=== PATIENT | male | born 1950 | race Caucasian/White ===

== ENCOUNTER 2021-12-09 15:53 | Inpatient (IN) | payer OTHER ==
[~2021-12-09] VITALS: Ht 180.3 cm; Wt 95.5 kg
[2021-12-09] MEDS ORDERED: dexamethasone sod phosphate 10mg/ml inj IV STA (16:04)
[2021-12-09] MEDS ORDERED: ipratropium 0.5 MG/2.5ML nebule IH ONE (16:05)
[2021-12-09] MEDS ORDERED: albuterol 2.5 MG/3 ML nebule CONTNEB PRN (16:05)
[2021-12-09] MEDS ORDERED: normal saline 1000ML IV soln IVB ONE (16:10)
[2021-12-09 16:14] LABS: ABG BASE EXCESS -4.5 mmol/L (-2.0-2.0); ABG OXYGEN SATURATION 93.2 % (94-97); ABG PCO2 (T) 27.8 mmHg (35.0-48.0); ABG PO2 (T) 67.5 mmHg (75.0-100.0); ALLEN'S TEST POSITIVE; FCOHb 0.8 % (0.0-3.9); FMetHb 0.3 % (0.0-1.5); FO2Hb 92.2 % (94-97); TOTAL HEMOGLOBIN 16.7 G/dl (14.0-18.0)
[2021-12-09 16:15] LABS: BASOPHILS % (AUTO) 0.2 % (0-1); EOSINOPHILS % (AUTO) 0 % (0-6); HEMATOCRIT 47.2 % (42.0-52.0); LYMPHOCYTES # (AUTO) 0.5 X10'3 (1.1-4.8); LYMPHOCYTES % (AUTO) 4.5 % (21-51); MEAN CORPUSCULAR HEMOGLOBIN 30.5 PG (27.0-31.0); MEAN CORPUSCULAR HGB CONC 33.9 g/dL (33.0-36.5); MEAN PLATELET VOLUME 9.9 FL (7.4-10.4); MONOCYTES # (AUTO) 0.9 X10'3 (0-0.9); MONOCYTES % (AUTO) 7.2 % (2-12); NEUTROPHILS # (AUTO) 10.5 X10'3 (1.8-7.7); NEUTROPHILS % (AUTO) 88.1 % (42-75); PLATELET COUNT 199 X10'3 (140-440); RED BLOOD COUNT 5.24 X10'6 (4.70-6.10); RED CELL DISTRIBUTION WIDTH 13.4 % (11.5-14.5); WHITE BLOOD COUNT 11.9 X10'3 (4.5-11.0)
[2021-12-09] MEDS ORDERED: acetaminophen 650mg rectal suppository RC ONE (16:25)
[2021-12-09 16:36] LABS: ALANINE AMINOTRANSFERASE 323 U/L (12-78); ALBUMIN 2.7 G/DL (3.4-5.0); ALBUMIN/GLOBULIN RATIO 0.6 (1.1-1.5); ALKALINE PHOSPHATASE 92 IU/L (46-116); ANION GAP 18 (8-16); ASPARTATE AMINO TRANSFERASE 534 U/L (10-37); BLOOD UREA NITROGEN 46 MG/DL (7-18); BUN/CREATININE RATIO 20.5 (5.4-32.0); CALCIUM 8.5 MG/DL (8.5-10.1); CHLORIDE 104 MMOL/L (99-107); CREATININE 2.24 MG/DL (0.60-1.10); GLUCOSE 215 MG/DL (70-104); POTASSIUM 4.1 MMOL/L (3.5-5.1); SODIUM 140 MMOL/L (135-145); TOTAL CARBON DIOXIDE 18.1 MMOL/L (24-32); TOTAL PROTEIN 7.1 G/DL (6.4-8.2); eGFR 29 ML/MIN
--- NOTE | 2021-12-09 16:43 | NUR ---
chris/daughter [phone] marsha/daughter
[2021-12-09 16:49] LABS: CLARITY,URINE CLEAR (Clear); GLUCOSE, URINE NEGATIVE (Neg); KETONES,URINE TRACE mg/dl (Neg); LEUKOCYTE ESTERASE ,URINE NEGATIVE (Neg); NITRITES, URINE NEGATIVE (Neg); OCCULT BLOOD,URINE TRACE-INTACT (Neg); PH,URINE 5.5 (4.8-8.0); PROTEIN,URINE 100 mg/dl (Neg)
[2021-12-09] MEDS ORDERED: enoxaparin 100mg/ml syringe SUBCUT ONE (16:50)
[2021-12-09 16:54] LABS: COLOR,URINE AMBER (Yellow); UA COLLECTION TYPE FOLEY CATH
[2021-12-09] MEDS ORDERED: CefTRIAXone 2gm/D5W 50ml BAG 50 ML IV ONE (16:55)
[2021-12-09 16:56] LABS: RBC,URINE 0-2 /HPF (0-2); WBC,URINE NONE SEEN /HPF (0-4)
[2021-12-09 16:57] LABS: BACTERIA,URINE NONE SEEN /HPF (Neg); HYALINE CASTS 0-3 /LPF (NEGATIVE); RENAL CELLS, URINE FEW /HPF; SQUAMOUS EPITHELIAL CELL,UR FEW /LPF (FEW)
--- NOTE | 2021-12-09 17:49 | NUR ---
DR. TALAVERA AT BEDSIDE.
--- NOTE | 2021-12-09 17:59 | NUR ---
DR. TALAVERA AT BEDSIDE.
[2021-12-09] MEDS ORDERED: ondansetron/PF 4mg/2ml inj IV PRN (18:05)
[2021-12-09] MEDS ORDERED: potassium CL 10mEq/100ml bag 100 ML IV PRN (18:05)
[2021-12-09] MEDS ORDERED: acetaminophen 325mg tablet PO PRN ×2 (18:05)
[2021-12-09] MEDS ORDERED: magnesium 4gm in 100ml NS 100 ML IV PRN (18:05)
[2021-12-09] MEDS ORDERED: albuterol 2.5 MG/3 ML nebule NEB PRN (18:05)
[2021-12-09] MEDS ORDERED: magnesium 2GM in 50ml NS 50 ML IV PRN (18:05)
[2021-12-09] MEDS ORDERED: potassium Cl 20 mEq SR tablet PO PRN ×2 (18:05)
[2021-12-09] MEDS ORDERED: magnesium Cl slow-release 64mg tablet PO PRN (18:05)
[2021-12-09] MEDS: normal saline 1000ml 1,000 ML IV SCH (18:05)
[2021-12-09] MEDS ORDERED: levoFLOXACIN-Levaquin 500mg/D5 100 ML IV ONE (18:34)
--- NOTE | 2021-12-09 19:26 | NUR ---
updated family on the phone
[2021-12-09] MEDS ORDERED: heparin, porcine 5000 units/ml vial SQ SCH (20:00)
[2021-12-09] MEDS: K and/or MAG REPLACEMENT MC SCH (20:00)
[2021-12-09] MEDS: methylPREDNISolone sod succ 125mg/2ml vial IV SCH (21:49)
[2021-12-09 23:30] VITALS: BP 137/94
[2021-12-09] MEDS ORDERED: NO HOME MEDS (23:44)
[2021-12-10 03:22] VITALS: BP 133/98
[2021-12-10] MEDS: normal saline 1000ml 1,000 ML IV SCH ×2 (04:05→18:23)
[2021-12-10 07:49] LABS: BASOPHILS % (AUTO) 0.2 % (0-1); EOSINOPHILS % (AUTO) 0 % (0-6); HEMATOCRIT 47.4 % (42.0-52.0); HEMOGLOBIN 16.1 g/dl (14.0-17.9); LYMPHOCYTES # (AUTO) 0.7 X10'3 (1.1-4.8); LYMPHOCYTES % (AUTO) 4.5 % (21-51); MEAN CORPUSCULAR HEMOGLOBIN 30.4 PG (27.0-31.0); MEAN CORPUSCULAR HGB CONC 34.1 g/dL (33.0-36.5); MEAN CORPUSCULAR VOLUME 89.2 FL (78-98); MEAN PLATELET VOLUME 10.3 FL (7.4-10.4); MONOCYTES # (AUTO) 0.5 X10'3 (0-0.9); MONOCYTES % (AUTO) 3.6 % (2-12); NEUTROPHILS # (AUTO) 13.4 X10'3 (1.8-7.7); NEUTROPHILS % (AUTO) 91.7 % (42-75); PLATELET COUNT 193 X10'3 (140-440); RED BLOOD COUNT 5.31 X10'6 (4.70-6.10); RED CELL DISTRIBUTION WIDTH 13.4 % (11.5-14.5); WHITE BLOOD COUNT 14.6 X10'3 (4.5-11.0)
[2021-12-10] MEDS ORDERED: azithromycin/NS 500mg/250ml 250 ML IV SCH ×2 (08:00)
[2021-12-10] MEDS: K and/or MAG REPLACEMENT MC SCH ×2 (08:00→20:00)
[2021-12-10 08:16] LABS: ALANINE AMINOTRANSFERASE 669 U/L (12-78); ALBUMIN 2.7 G/DL (3.4-5.0); ALBUMIN/GLOBULIN RATIO 0.8 (1.1-1.5); ALKALINE PHOSPHATASE 97 IU/L (46-116); ANION GAP 14 (8-16); ASPARTATE AMINO TRANSFERASE 807 U/L (10-37); BILIRUBIN,TOTAL 0.6 MG/DL (0.1-1.0); BLOOD UREA NITROGEN 56 MG/DL (7-18); BUN/CREATININE RATIO 34.1 (5.4-32.0); CHLORIDE 107 MMOL/L (99-107); CREATININE 1.64 MG/DL (0.60-1.10); GLUCOSE 272 MG/DL (70-104); POTASSIUM 4.2 MMOL/L (3.5-5.1); SODIUM 143 MMOL/L (135-145); TOTAL CARBON DIOXIDE 21.9 MMOL/L (24-32); TOTAL PROTEIN 6.3 G/DL (6.4-8.2); eGFR 42 ML/MIN
[2021-12-10 11:22] LABS: C-REACTIVE PROTEIN 21.35 MG/DL (0.0-0.5)
[2021-12-10 11:26] LABS: D-DIMER > 35.20 MG/L FEU (0-0.50)
[2021-12-10] MEDS: methylPREDNISolone sod succ 125mg/2ml vial IV SCH ×2 (11:27→19:14)
[2021-12-10] MEDS ORDERED: TOCILIZUMAB 80MG/4 ML INJ. 800 MG in normal saline 100ml IV soln 60 ML IV ONE (11:45)
[2021-12-10] MEDS ORDERED: heparin 25,000 UNIT/250ml bag 250 ML IV SCH (11:50)
[2021-12-10] MEDS ORDERED: heparin 10,000 units/1 ML INJ IV ONE (11:50)
[2021-12-10] MEDS ORDERED: heparin 10,000 units/1 ML INJ IV PRN (11:50)
[2021-12-10 15:00] VITALS: BP 141/72
[2021-12-10 18:00] VITALS: BP 137/74
[2021-12-10] MEDS ORDERED: levoFLOXACIN-Levaquin 250mg/D5 50 ML IV SCH (20:00)
[2021-12-10] MEDS ORDERED: enoxaparin 40mg/0.4ml syringe SUBCUT SCH (20:00)
[2021-12-10 22:00] VITALS: BP 145/96
[2021-12-11] MEDS: normal saline 1000ml 1,000 ML IV SCH ×3 (00:33→22:45)
[2021-12-11 02:00] VITALS: BP 132/94
[2021-12-11 06:00] VITALS: BP 141/93
[2021-12-11 07:56] LABS: BASOPHILS % (AUTO) 0.1 % (0-1); EOSINOPHILS % (AUTO) 0 % (0-6); HEMATOCRIT 47.2 % (42.0-52.0); LYMPHOCYTES # (AUTO) 0.5 X10'3 (1.1-4.8); LYMPHOCYTES % (AUTO) 1.8 % (21-51); MEAN CORPUSCULAR HEMOGLOBIN 30.2 PG (27.0-31.0); MEAN CORPUSCULAR VOLUME 88.8 FL (78-98); MEAN PLATELET VOLUME 10.2 FL (7.4-10.4); MONOCYTES # (AUTO) 0.9 X10'3 (0-0.9); MONOCYTES % (AUTO) 3.4 % (2-12); NEUTROPHILS # (AUTO) 25.7 X10'3 (1.8-7.7); NEUTROPHILS % (AUTO) 94.7 % (42-75); PLATELET COUNT 186 X10'3 (140-440); RED BLOOD COUNT 5.31 X10'6 (4.70-6.10); RED CELL DISTRIBUTION WIDTH 13.6 % (11.5-14.5)
[2021-12-11] MEDS: K and/or MAG REPLACEMENT MC SCH ×2 (08:00→19:51)
[2021-12-11 08:10] LABS: WHITE BLOOD COUNT 27.1 X10'3 (4.5-11.0)
[2021-12-11] MEDS: methylPREDNISolone sod succ 125mg/2ml vial IV SCH ×2 (08:28→19:22)
[2021-12-11 08:30] LABS: ALANINE AMINOTRANSFERASE 574 U/L (12-78); ALBUMIN 2.4 G/DL (3.4-5.0); ALBUMIN/GLOBULIN RATIO 0.7 (1.1-1.5); ALKALINE PHOSPHATASE 110 IU/L (46-116); ANION GAP 10 (8-16); ASPARTATE AMINO TRANSFERASE 312 U/L (10-37); BILIRUBIN,TOTAL 0.6 MG/DL (0.1-1.0); BLOOD UREA NITROGEN 48 MG/DL (7-18); BUN/CREATININE RATIO 42.9 (5.4-32.0); C-REACTIVE PROTEIN 11.84 MG/DL (0.0-0.5); CALCIUM 7.5 MG/DL (8.5-10.1); CHLORIDE 110 MMOL/L (99-107); CREATININE 1.12 MG/DL (0.60-1.10); GLUCOSE 271 MG/DL (70-104); SODIUM 144 MMOL/L (135-145); eGFR 65 ML/MIN
--- NOTE | 2021-12-11 08:46 | NUR ---
PAGE SENT... PAGER ID: [phone] MESSAGE: NEDA [id number]-RE: JOHNATHAN ARORA [phone]...CRITICAL LAB...WBC 27.1
--- NOTE | 2021-12-11 08:47 | NUR ---
ACTING RESOURCE RN, REC'D CALL FROM LAB...CRITICAL LAB WBC 27.1, INTERVENTION DONE, MD QUIGLEY, PRIMARY RN NOTIFIED.
[2021-12-11 09:26] LABS: PLATELET ESTIMATE NORMAL; TOTAL CELLS COUNTED 100
[2021-12-11 09:27] LABS: BURR CELLS FEW; SCHISTOCYTES FEW
[2021-12-11 10:00] VITALS: BP 151/93
[2021-12-11] MEDS ORDERED: DORZ10DR10 EACHEYE (10:09)
[2021-12-11] MEDS ORDERED: PRAV10TA39 PO (10:09)
[2021-12-11] MEDS ORDERED: XAL0.005OS EACHEYE (10:09)
[2021-12-11 10:24] LABS: D-DIMER > 35.20 MG/L FEU (0-0.50)
[2021-12-11] MEDS: levoFLOXACIN 750MG TABLET PO SCH (11:00)
[2021-12-11] MEDS: enoxaparin 100mg/ml syringe SUBCUT SCH ×2 (11:05→19:23)
[2021-12-11 14:00] VITALS: BP 128/73
--- NOTE | 2021-12-11 17:37 | NUR ---
Spoke to daughter over phone, gave update and obtained patient home meds. Home meds called into pharmacy. Pharmacy will review meds and reach out to MD. Simpson removed per Dr. Parisi requests. Patient encouraged to lay on side/prone. IS placed in room, patient not able to tolerate at moment.
[2021-12-11 18:00] VITALS: BP 116/59
--- NOTE | 2021-12-11 18:25 | NUR ---
Patient in room [facility]TH[facility] 4018. I have received report from GAMALIEL Mosqueda and had the opportunity to ask questions and assume patient care.
--- NOTE | 2021-12-11 18:36 | NUR ---
Problems reprioritized. Patient report given, questions answered & plan of care reviewed with Cheryle ALSTON.
[2021-12-11] MEDS ORDERED: enoxaparin 40mg/0.4ml syringe SUBCUT SCH (20:00)
[2021-12-11] MEDS ORDERED: enoxaparin 100mg/ml syringe SUBCUT SCH (20:00)
[2021-12-11] MEDS: latanoprost 0.005% 2.5ml ophthalmic drops EACHEYE SCH (20:28)
[2021-12-11] MEDS: dorzolamide/timolol (Cosopt) ophthalmic drops 10ml bottle EACHEYE SCH ×2 (20:28→21:00)
[2021-12-11] MEDS: pravastatin 40mg tablet PO SCH (20:28)
[2021-12-11] MEDS ORDERED: pravastatin 10mg tablet PO SCH (21:00)
[2021-12-11 22:00] VITALS: BP 122/66
[2021-12-12 02:00] VITALS: BP 142/87
[2021-12-12 06:00] VITALS: BP 149/97
[2021-12-12] MEDS: normal saline 1000ml 1,000 ML IV SCH ×2 (06:05→16:05)
--- NOTE | 2021-12-12 06:28 | NUR ---
Problems reprioritized. Patient report given, questions answered & plan of care reviewed with GAMALIEL Mosqueda.
[2021-12-12] MEDS: methylPREDNISolone sod succ 125mg/2ml vial IV SCH ×2 (07:34→20:15)
[2021-12-12] MEDS: enoxaparin 100mg/ml syringe SUBCUT SCH ×2 (07:35→20:16)
[2021-12-12] MEDS: K and/or MAG REPLACEMENT MC SCH ×2 (08:00→20:00)
[2021-12-12 09:09] LABS: EOSINOPHILS % (AUTO) 0 % (0-6); LYMPHOCYTES # (AUTO) 0.4 X10'3 (1.1-4.8); MONOCYTES # (AUTO) 0.9 X10'3 (0-0.9); NEUTROPHILS % (AUTO) 94.4 % (42-75); RED BLOOD COUNT 5.58 X10'6 (4.70-6.10)
[2021-12-12 09:11] LABS: BASOPHILS # (AUTO) 0.1 X10'3 (0-0.2); BASOPHILS % (AUTO) 0.2 % (0-1); HEMATOCRIT 49.7 % (42.0-52.0); HEMOGLOBIN 16.7 g/dl (14.0-17.9); LYMPHOCYTES % (AUTO) 1.8 % (21-51); MEAN CORPUSCULAR HGB CONC 33.6 g/dL (33.0-36.5); MEAN CORPUSCULAR VOLUME 89.1 FL (78-98); MEAN PLATELET VOLUME 10.4 FL (7.4-10.4); MONOCYTES % (AUTO) 3.6 % (2-12); NEUTROPHILS # (AUTO) 23.7 X10'3 (1.8-7.7); PLATELET COUNT 128 X10'3 (140-440); RED CELL DISTRIBUTION WIDTH 13.9 % (11.5-14.5)
[2021-12-12 09:19] LABS: WHITE BLOOD COUNT 25.1 X10'3 (4.5-11.0)
[2021-12-12 09:27] LABS: D-DIMER > 35.20 MG/L FEU (0-0.50)
[2021-12-12] MEDS ORDERED: polyethylene glycol 3350 17gm powd pack PO ONE (09:40)
[2021-12-12 10:00] VITALS: BP 139/85
[2021-12-12 10:29] LABS: TOTAL CELLS COUNTED 100
[2021-12-12 10:30] LABS: PLATELET ESTIMATE DECREASED; POIKILOCYTOSIS FEW; TOXIC GRANULATION 1+; TOXIC VACUOLATION 1+
[2021-12-12 11:07] LABS: ALANINE AMINOTRANSFERASE 525 U/L (12-78); ALBUMIN 2.8 G/DL (3.4-5.0); ALBUMIN/GLOBULIN RATIO 0.8 (1.1-1.5); ALKALINE PHOSPHATASE 156 IU/L (46-116); ANION GAP 14 (8-16); ASPARTATE AMINO TRANSFERASE 196 U/L (10-37); BILIRUBIN,TOTAL 0.9 MG/DL (0.1-1.0); BLOOD UREA NITROGEN 41 MG/DL (7-18); BUN/CREATININE RATIO 33.6 (5.4-32.0); C-REACTIVE PROTEIN 6.65 MG/DL (0.0-0.5); CALCIUM 7.7 MG/DL (8.5-10.1); CHLORIDE 110 MMOL/L (99-107); CREATININE 1.22 MG/DL (0.60-1.10); GLUCOSE 244 MG/DL (70-104); POTASSIUM 4.4 MMOL/L (3.5-5.1); SODIUM 146 MMOL/L (135-145); TOTAL CARBON DIOXIDE 22.4 MMOL/L (24-32); TOTAL PROTEIN 6.2 G/DL (6.4-8.2); eGFR 59 ML/MIN
[2021-12-12 14:00] VITALS: BP 128/63
[2021-12-12 18:00] VITALS: BP 134/67
--- NOTE | 2021-12-12 18:21 | NUR ---
Problems reprioritized. Patient report given, questions answered & plan of care reviewed with Monique ALSTON.
--- NOTE | 2021-12-12 19:40 | NUR ---
Pt attempted to eat dinner while on high flow with face mask; pt unable to breath and oxygen saturation drops to 78%. pt instructed to stop eating and placed back on BIPAP. Charge nurse notified. ensure order pending.
[2021-12-12] MEDS: pravastatin 40mg tablet PO SCH (20:15)
[2021-12-12] MEDS: dorzolamide/timolol (Cosopt) ophthalmic drops 10ml bottle EACHEYE SCH (20:16)
[2021-12-12] MEDS: latanoprost 0.005% 2.5ml ophthalmic drops EACHEYE SCH (20:17)
[2021-12-12 22:00] VITALS: BP 130/65
--- NOTE | 2021-12-12 23:30 | NUR ---
RT informed me that she increased his FIO2 to 90% for oxygen sat's in the 86-87%.
--- NOTE | 2021-12-12 23:31 | NUR ---
Pt on Bipap oxygen saturation 87 oxygen level increased to 90.
--- NOTE | 2021-12-13 00:16 | NUR ---
Pt is sleeping on his right side, saturating well 96% on BiPAP
--- NOTE | 2021-12-13 01:55 | NUR ---
Pt is on his left side saturating 88 % on the BIPAP
[2021-12-13 02:00] VITALS: BP 138/68
[2021-12-13 06:00] VITALS: BP 143/84
[2021-12-13] MEDS: levoFLOXACIN 750MG TABLET PO SCH (07:40)
[2021-12-13] MEDS: enoxaparin 100mg/ml syringe SUBCUT SCH ×2 (07:40→19:59)
[2021-12-13] MEDS: methylPREDNISolone sod succ 125mg/2ml vial IV SCH (07:40)
[2021-12-13 07:53] LABS: BASOPHILS # (AUTO) 0.1 X10'3 (0-0.2); BASOPHILS % (AUTO) 0.2 % (0-1); EOSINOPHILS % (AUTO) 0.1 % (0-6); HEMATOCRIT 46.2 % (42.0-52.0); HEMOGLOBIN 15.3 g/dl (14.0-17.9); LYMPHOCYTES # (AUTO) 0.4 X10'3 (1.1-4.8); LYMPHOCYTES % (AUTO) 1.7 % (21-51); MEAN CORPUSCULAR HEMOGLOBIN 29.6 PG (27.0-31.0); MEAN CORPUSCULAR HGB CONC 33.1 g/dL (33.0-36.5); MEAN CORPUSCULAR VOLUME 89.2 FL (78-98); MEAN PLATELET VOLUME 10.9 FL (7.4-10.4); MONOCYTES # (AUTO) 0.4 X10'3 (0-0.9); MONOCYTES % (AUTO) 1.9 % (2-12); NEUTROPHILS # (AUTO) 20.5 X10'3 (1.8-7.7); NEUTROPHILS % (AUTO) 96.1 % (42-75); PLATELET COUNT 112 X10'3 (140-440); RED BLOOD COUNT 5.18 X10'6 (4.70-6.10); RED CELL DISTRIBUTION WIDTH 13.5 % (11.5-14.5); WHITE BLOOD COUNT 21.3 X10'3 (4.5-11.0)
[2021-12-13] MEDS: lactose-reduced food (Ensure Enlive) - 237ml bottle PO SCH ×3 (08:00→18:29)
[2021-12-13] MEDS: K and/or MAG REPLACEMENT MC SCH ×2 (08:00→19:40)
[2021-12-13 08:53] LABS: ALANINE AMINOTRANSFERASE 328 U/L (12-78); ALBUMIN 2.4 G/DL (3.4-5.0); ALBUMIN/GLOBULIN RATIO 0.9 (1.1-1.5); ALKALINE PHOSPHATASE 150 IU/L (46-116); ANION GAP 9 (8-16); ASPARTATE AMINO TRANSFERASE 99 U/L (10-37); BILIRUBIN,TOTAL 0.7 MG/DL (0.1-1.0); BLOOD UREA NITROGEN 34 MG/DL (7-18); BUN/CREATININE RATIO 33.7 (5.4-32.0); C-REACTIVE PROTEIN 3.04 MG/DL (0.0-0.5); CALCIUM 7.4 MG/DL (8.5-10.1); CHLORIDE 112 MMOL/L (99-107); CREATININE 1.01 MG/DL (0.60-1.10); GLUCOSE 219 MG/DL (70-104); POTASSIUM 4.3 MMOL/L (3.5-5.1); SODIUM 145 MMOL/L (135-145); TOTAL CARBON DIOXIDE 24.1 MMOL/L (24-32); TOTAL PROTEIN 5.2 G/DL (6.4-8.2); eGFR 73 ML/MIN
[2021-12-13 09:15] LABS: D-DIMER > 35.20 MG/L FEU (0-0.50)
[2021-12-13 10:00] VITALS: BP 139/84
[2021-12-13] MEDS: normal saline 1000ml 1,000 ML IV SCH (10:25)
--- NOTE | 2021-12-13 11:18 | NUR ---
Initial: Pt admit for acute respiratory failure with COVID PNA, RACHELE, metabolic acidosis, and shock liver. Pt on a regular diet and initially eating well with average 63% PO intake of first seven meals however down to 0% PO intake at three most recent meals. Pt now receiving Ensure Enlive TIDWM, documented with 100% PO intake first ONS. Recommend continuing with ONS and encouraging PO intake of meals to optimize PO intake. Noted pt currently BiPAP dependent, likely impacting PO intake of meals. LBM 12/09, currently not receiving routine bowel care. D/w dietary to send prune juice with next meal to assist with bowel regularity, though pt would benefit from routine bowel care. Will continue to follow and make recommendations as appropriate. Recommendations: 1) Continue regular diet 2) Ensure Enlive TIDWM 3) Routine bowel care 4) Scaled weight this admit; weekly scaled weights thereafter Addendum: 12/13/21 at [address] Amended: Links added.
[2021-12-13 14:00] VITALS: BP 120/77
--- NOTE | 2021-12-13 17:19 | NUR ---
Patient encouraged to lay on side/prone for maximum oxygenation. Nutrition intake encouraged/assistance provided while on bipap.
[2021-12-13 18:00] VITALS: BP 151/78
--- NOTE | 2021-12-13 18:20 | NUR ---
Problems reprioritized. Patient report given, questions answered & plan of care reviewed with Vanessa ALSTON.
[2021-12-13] MEDS: latanoprost 0.005% 2.5ml ophthalmic drops EACHEYE SCH (19:58)
[2021-12-13] MEDS: dorzolamide/timolol (Cosopt) ophthalmic drops 10ml bottle EACHEYE SCH (19:58)
[2021-12-13] MEDS: pravastatin 40mg tablet PO SCH (19:58)
[2021-12-13] MEDS: methylPREDNISolone sod succ/PF 40mg inj. IV SCH (19:59)
[2021-12-13 22:00] VITALS: BP 137/79
[2021-12-14 02:00] VITALS: BP 155/71
[2021-12-14 06:00] VITALS: BP 147/75
--- NOTE | 2021-12-14 06:10 | NUR ---
received report from alisha riley rn
--- NOTE | 2021-12-14 06:28 | NUR ---
Problems reprioritized. Patient report given, questions answered & plan of care reviewed with GAMALIEL Bender.
[2021-12-14 07:50] LABS: BASOPHILS % (AUTO) 0.1 % (0-1); EOSINOPHILS % (AUTO) 0.1 % (0-6); HEMATOCRIT 46.7 % (42.0-52.0); HEMOGLOBIN 15.8 g/dl (14.0-17.9); LYMPHOCYTES # (AUTO) 0.3 X10'3 (1.1-4.8); LYMPHOCYTES % (AUTO) 1.7 % (21-51); MEAN CORPUSCULAR HEMOGLOBIN 29.9 PG (27.0-31.0); MEAN CORPUSCULAR HGB CONC 33.8 g/dL (33.0-36.5); MEAN CORPUSCULAR VOLUME 88.4 FL (78-98); MEAN PLATELET VOLUME 10.8 FL (7.4-10.4); MONOCYTES # (AUTO) 0.2 X10'3 (0-0.9); MONOCYTES % (AUTO) 1.2 % (2-12); NEUTROPHILS # (AUTO) 16.8 X10'3 (1.8-7.7); NEUTROPHILS % (AUTO) 96.9 % (42-75); PLATELET COUNT 125 X10'3 (140-440); RED BLOOD COUNT 5.28 X10'6 (4.70-6.10); RED CELL DISTRIBUTION WIDTH 13.1 % (11.5-14.5); WHITE BLOOD COUNT 17.3 X10'3 (4.5-11.0)
[2021-12-14 07:56] LABS: D-DIMER > 35.20 MG/L FEU (0-0.50)
[2021-12-14] MEDS: K and/or MAG REPLACEMENT MC SCH ×2 (08:00→20:00)
[2021-12-14 08:18] LABS: ALANINE AMINOTRANSFERASE 238 U/L (12-78); ALBUMIN 2.4 G/DL (3.4-5.0); ALBUMIN/GLOBULIN RATIO 0.8 (1.1-1.5); ALKALINE PHOSPHATASE 141 IU/L (46-116); ANION GAP 10 (8-16); ASPARTATE AMINO TRANSFERASE 59 U/L (10-37); BILIRUBIN,TOTAL 0.8 MG/DL (0.1-1.0); BLOOD UREA NITROGEN 32 MG/DL (7-18); BUN/CREATININE RATIO 34.4 (5.4-32.0); C-REACTIVE PROTEIN 1.76 MG/DL (0.0-0.5); CALCIUM 7.3 MG/DL (8.5-10.1); CHLORIDE 110 MMOL/L (99-107); CREATININE 0.93 MG/DL (0.60-1.10); GLUCOSE 197 MG/DL (70-104); POTASSIUM 4.6 MMOL/L (3.5-5.1); SODIUM 144 MMOL/L (135-145); TOTAL CARBON DIOXIDE 23.9 MMOL/L (24-32); TOTAL PROTEIN 5.3 G/DL (6.4-8.2); eGFR 80 ML/MIN
[2021-12-14] MEDS: lactose-reduced food (Ensure Enlive) - 237ml bottle PO SCH ×3 (08:18→18:00)
[2021-12-14] MEDS: methylPREDNISolone sod succ/PF 40mg inj. IV SCH ×2 (08:22→20:02)
[2021-12-14] MEDS: enoxaparin 100mg/ml syringe SUBCUT SCH ×2 (08:23→20:03)
[2021-12-14] MEDS: normal saline 1000ml 1,000 ML IV SCH (08:37)
[2021-12-14 10:00] VITALS: BP 117/66
[2021-12-14 12:39] LABS: TOTAL CELLS COUNTED 100
[2021-12-14 12:40] LABS: PLATELET ESTIMATE DECREASED; POIKILOCYTOSIS FEW; POLYCHROMASIA FEW
[2021-12-14 18:00] VITALS: BP 128/82
--- NOTE | 2021-12-14 18:11 | NUR ---
GAVE REPORT TO Rodrick BURDICK RN
[2021-12-14] MEDS: pravastatin 40mg tablet PO SCH (20:03)
[2021-12-14] MEDS: dorzolamide/timolol (Cosopt) ophthalmic drops 10ml bottle EACHEYE SCH (20:03)
[2021-12-14] MEDS: latanoprost 0.005% 2.5ml ophthalmic drops EACHEYE SCH (20:03)
[2021-12-14 22:00] VITALS: BP 127/71
[2021-12-15 02:00] VITALS: BP 132/80
[2021-12-15] MEDS: normal saline 1000ml 1,000 ML IV SCH ×2 (04:54→22:55)
[2021-12-15 06:00] VITALS: BP 129/85
--- NOTE | 2021-12-15 06:10 | NUR ---
received report from alisha riley rn
--- NOTE | 2021-12-15 06:17 | NUR ---
Problems reprioritized. Patient report given, questions answered & plan of care reviewed with GAMALIEL Bender.
[2021-12-15 07:19] LABS: D-DIMER > 35.20 MG/L FEU (0-0.50)
[2021-12-15] MEDS: K and/or MAG REPLACEMENT MC SCH ×2 (08:00→19:48)
[2021-12-15] MEDS: lactose-reduced food (Ensure Enlive) - 237ml bottle PO SCH ×3 (08:15→18:03)
[2021-12-15] MEDS: levoFLOXACIN 750MG TABLET PO SCH (08:39)
[2021-12-15] MEDS: methylPREDNISolone sod succ/PF 40mg inj. IV SCH ×2 (08:40→19:47)
[2021-12-15] MEDS: enoxaparin 100mg/ml syringe SUBCUT SCH ×2 (08:41→19:48)
[2021-12-15 18:00] VITALS: BP 126/78
--- NOTE | 2021-12-15 18:11 | NUR ---
GAVE REPORT TO GAMALIEL GONZALEZ
[2021-12-15] MEDS: dorzolamide/timolol (Cosopt) ophthalmic drops 10ml bottle EACHEYE SCH (19:47)
[2021-12-15] MEDS: latanoprost 0.005% 2.5ml ophthalmic drops EACHEYE SCH (19:47)
[2021-12-15] MEDS: pravastatin 40mg tablet PO SCH (19:47)
[2021-12-15 22:00] VITALS: BP 136/88
[2021-12-16 02:00] VITALS: BP 125/68
[2021-12-16 06:00] VITALS: BP 135/85
--- NOTE | 2021-12-16 06:10 | NUR ---
RECEIVED REPORT FROM GAMALIEL GONZALEZ
[2021-12-16] MEDS: lactose-reduced food (Ensure Enlive) - 237ml bottle PO SCH ×3 (07:37→18:00)
[2021-12-16] MEDS: methylPREDNISolone sod succ/PF 40mg inj. IV SCH ×2 (07:46→20:13)
[2021-12-16] MEDS: enoxaparin 100mg/ml syringe SUBCUT SCH ×2 (07:47→20:13)
[2021-12-16] MEDS: K and/or MAG REPLACEMENT MC SCH ×2 (08:00→20:00)
[2021-12-16 09:19] LABS: D-DIMER 26.35 MG/L FEU (0-0.50)
[2021-12-16 10:00] VITALS: BP 114/65
[2021-12-16] MEDS ORDERED: iohexol 350MG/ML 100ml bottle IV ONE (11:04)
--- NOTE | 2021-12-16 15:09 | NUR ---
Reassessment: Pt PO much improved past two days ~80% avg regular diet and ~79% avg Ensure Enlive TIDWM meeting estimated needs. Remains BIPAP dependent per MD note. First BM copious 12/15 following prior 6 day constipation per EMR. Noted pt Glu 197-272mg/dl this admit last checked 12/14 not on glycemic protocol; [place] d/w RN regarding glycemic protocol and routine Glu checks while on solumedrol if MD agreeable. Will continue to monitor for further nutrition intervention needs this admit. Recommendations: 1) Continue regular diet; encourage PO 2) Ensure Enlive TIDWM; IF current PO persists consider reducing to once/day 3) Routine bowel care 4) Glycemic protocol per MD discretion; Glu 197-272mg/dl this admit on steroids w/ no prior hx DM per EMR. Last Glu check 12/14 5) Scaled weight this admit; weekly scaled weights thereafter Addendum: 12/16/21 at [address] Amended: Links added.
--- NOTE | 2021-12-16 18:12 | NUR ---
GAVE REPORT TO GAMALIEL GONZALEZ
[2021-12-16 18:21] VITALS: BP 136/82
[2021-12-16] MEDS: latanoprost 0.005% 2.5ml ophthalmic drops EACHEYE SCH (20:08)
[2021-12-16] MEDS: dorzolamide/timolol (Cosopt) ophthalmic drops 10ml bottle EACHEYE SCH (20:08)
[2021-12-16] MEDS: normal saline 1000ml 1,000 ML IV SCH (20:11)
[2021-12-16] MEDS: pravastatin 40mg tablet PO SCH (21:00)
[2021-12-16 22:00] VITALS: BP 122/82
[2021-12-17 02:00] VITALS: BP 138/84
--- NOTE | 2021-12-17 06:12 | NUR ---
Patient in room [facility]TH[facility] 4018. I have received report from Evie ALSTON and had the opportunity to ask questions and assume patient care.
[2021-12-17 06:35] VITALS: BP 132/85
[2021-12-17 07:33] LABS: BASOPHILS # (AUTO) 0.1 X10'3 (0-0.2); BASOPHILS % (AUTO) 0.6 % (0-1); EOSINOPHILS # (AUTO) 0.1 X10'3 (0-0.9); EOSINOPHILS % (AUTO) 0.4 % (0-6); HEMOGLOBIN 16.6 g/dl (14.0-17.9); LYMPHOCYTES # (AUTO) 0.4 X10'3 (1.1-4.8); LYMPHOCYTES % (AUTO) 1.5 % (21-51); MEAN CORPUSCULAR HEMOGLOBIN 29.6 PG (27.0-31.0); MEAN CORPUSCULAR HGB CONC 33.1 g/dL (33.0-36.5); MEAN CORPUSCULAR VOLUME 89.4 FL (78-98); MEAN PLATELET VOLUME 10.2 FL (7.4-10.4); MONOCYTES # (AUTO) 0.3 X10'3 (0-0.9); MONOCYTES % (AUTO) 1.2 % (2-12); NEUTROPHILS # (AUTO) 22.8 X10'3 (1.8-7.7); NEUTROPHILS % (AUTO) 96.3 % (42-75); PLATELET COUNT 155 X10'3 (140-440); RED BLOOD COUNT 5.59 X10'6 (4.70-6.10); RED CELL DISTRIBUTION WIDTH 13.8 % (11.5-14.5); WHITE BLOOD COUNT 23.7 X10'3 (4.5-11.0)
[2021-12-17] MEDS: K and/or MAG REPLACEMENT MC SCH ×2 (08:00→19:46)
[2021-12-17] MEDS: enoxaparin 100mg/ml syringe SUBCUT SCH ×2 (08:07→19:46)
[2021-12-17] MEDS: methylPREDNISolone sod succ/PF 40mg inj. IV SCH ×2 (08:07→19:45)
[2021-12-17] MEDS: lactose-reduced food (Ensure Enlive) - 237ml bottle PO SCH ×3 (08:07→18:00)
[2021-12-17 08:34] LABS: ALANINE AMINOTRANSFERASE 124 U/L (12-78); ALBUMIN 2.6 G/DL (3.4-5.0); ALBUMIN/GLOBULIN RATIO 0.9 (1.1-1.5); ALKALINE PHOSPHATASE 108 IU/L (46-116); ANION GAP 10 (8-16); ASPARTATE AMINO TRANSFERASE 33 U/L (10-37); BILIRUBIN,TOTAL 0.8 MG/DL (0.1-1.0); BLOOD UREA NITROGEN 30 MG/DL (7-18); BUN/CREATININE RATIO 38.5 (5.4-32.0); CALCIUM 7.5 MG/DL (8.5-10.1); CHLORIDE 105 MMOL/L (99-107); CREATININE 0.78 MG/DL (0.60-1.10); GLUCOSE 159 MG/DL (70-104); POTASSIUM 4.5 MMOL/L (3.5-5.1); SODIUM 140 MMOL/L (135-145); TOTAL CARBON DIOXIDE 24.7 MMOL/L (24-32); TOTAL PROTEIN 5.4 G/DL (6.4-8.2); eGFR > 90 ML/MIN
[2021-12-17 09:16] LABS: D-DIMER 16.19 MG/L FEU (0-0.50)
[2021-12-17 10:00] VITALS: BP 134/73
[2021-12-17] MEDS: normal saline 1000ml 1,000 ML IV SCH (14:25)
[2021-12-17 18:00] VITALS: BP 124/79
--- NOTE | 2021-12-17 18:04 | NUR ---
Problems reprioritized. Patient report given, questions answered & plan of care reviewed with Laila ALSTON.
[2021-12-17] MEDS: pravastatin 40mg tablet PO SCH (19:46)
[2021-12-17] MEDS: dorzolamide/timolol (Cosopt) ophthalmic drops 10ml bottle EACHEYE SCH (19:47)
[2021-12-17] MEDS: latanoprost 0.005% 2.5ml ophthalmic drops EACHEYE SCH (19:47)
[2021-12-17 22:00] VITALS: BP 119/80
[2021-12-18 02:00] VITALS: BP 135/75
--- NOTE | 2021-12-18 06:01 | NUR ---
Problems reprioritized. Patient report given, questions answered & plan of care reviewed with Danna ALSTON.
--- NOTE | 2021-12-18 06:12 | NUR ---
Patient in room [facility] 4018. I have received report from Laila ALSTON and had the opportunity to ask questions and assume patient care.
[2021-12-18 06:21] VITALS: BP 127/78
[2021-12-18 07:58] LABS: BASOPHILS # (AUTO) 0.1 X10'3 (0-0.2); BASOPHILS % (AUTO) 0.3 % (0-1); EOSINOPHILS # (AUTO) 0.1 X10'3 (0-0.9); EOSINOPHILS % (AUTO) 0.4 % (0-6); HEMATOCRIT 50.7 % (42.0-52.0); HEMOGLOBIN 16.9 g/dl (14.0-17.9); LYMPHOCYTES # (AUTO) 0.4 X10'3 (1.1-4.8); LYMPHOCYTES % (AUTO) 1.4 % (21-51); MEAN CORPUSCULAR HEMOGLOBIN 29.4 PG (27.0-31.0); MEAN CORPUSCULAR HGB CONC 33.3 g/dL (33.0-36.5); MEAN CORPUSCULAR VOLUME 88.3 FL (78-98); MEAN PLATELET VOLUME 10.4 FL (7.4-10.4); MONOCYTES # (AUTO) 0.3 X10'3 (0-0.9); MONOCYTES % (AUTO) 1.3 % (2-12); NEUTROPHILS # (AUTO) 25.7 X10'3 (1.8-7.7); NEUTROPHILS % (AUTO) 96.6 % (42-75); PLATELET COUNT 164 X10'3 (140-440); RED BLOOD COUNT 5.75 X10'6 (4.70-6.10); RED CELL DISTRIBUTION WIDTH 13.5 % (11.5-14.5)
[2021-12-18] MEDS: K and/or MAG REPLACEMENT MC SCH ×2 (08:00→19:35)
[2021-12-18 08:04] LABS: WHITE BLOOD COUNT 26.7 X10'3 (4.5-11.0)
--- NOTE | 2021-12-18 08:08 | NUR ---
PAGER ID: [phone] MESSAGE: [id number] Eriberto critical WBC 26.7 [place] [id number]
[2021-12-18 08:10] LABS: ALANINE AMINOTRANSFERASE 101 U/L (12-78); ALBUMIN 2.6 G/DL (3.4-5.0); ALKALINE PHOSPHATASE 113 IU/L (46-116); ANION GAP 7 (8-16); ASPARTATE AMINO TRANSFERASE 39 U/L (10-37); BILIRUBIN,TOTAL 0.8 MG/DL (0.1-1.0); BLOOD UREA NITROGEN 27 MG/DL (7-18); BUN/CREATININE RATIO 32.1 (5.4-32.0); C-REACTIVE PROTEIN 0.28 MG/DL (0.0-0.5); CALCIUM 7.6 MG/DL (8.5-10.1); CHLORIDE 104 MMOL/L (99-107); CREATININE 0.84 MG/DL (0.60-1.10); GLUCOSE 168 MG/DL (70-104); POTASSIUM 4.7 MMOL/L (3.5-5.1); SODIUM 138 MMOL/L (135-145); TOTAL CARBON DIOXIDE 27.5 MMOL/L (24-32); TOTAL PROTEIN 5.2 G/DL (6.4-8.2); eGFR 90 ML/MIN
[2021-12-18] MEDS: methylPREDNISolone sod succ/PF 40mg inj. IV SCH ×2 (08:18→19:38)
[2021-12-18] MEDS: enoxaparin 100mg/ml syringe SUBCUT SCH ×2 (08:19→19:39)
[2021-12-18] MEDS: lactose-reduced food (Ensure Enlive) - 237ml bottle PO SCH ×3 (08:19→18:36)
[2021-12-18 08:40] LABS: D-DIMER 11.01 MG/L FEU (0-0.50)
--- NOTE | 2021-12-18 08:57 | NUR ---
While eating patient sp02 was 97%, attempted to titrate 02 to 60 liters 80% and took off his nonrebreather, ultimately tolerated well for about 15 minutes patient was then 84%. Titrated back up to 60 and 100% and applied nonrebreather. Sp02 resting on back at this time is 87%, will encourage side lying.
[2021-12-18] MEDS ORDERED: VANCOMYCIN 1GM/200ML IVPB 200 ML IV ONE (09:50)
[2021-12-18 09:58] VITALS: BP 132/79
--- NOTE | 2021-12-18 10:03 | NUR ---
Patients WBC critically high today, received orders from MD for lactic, blood cultures and procalcitonin. Lactic critically high at 5.2, antibiotics being ordered and fluids increased from 50mls/hr to 125mls/hr
[2021-12-18] MEDS: normal saline 1000ml 1,000 ML IV SCH ×3 (10:26→22:31)
[2021-12-18] MEDS ORDERED: VANCOmycin 2,000MG in NS 500ml IV soln IV ONE (10:35)
[2021-12-18] MEDS ORDERED: VANCOMYCIN 1GM/200ML IVPB 200 ML IV SCH (11:00)
[2021-12-18 11:43] LABS: PLATELET ESTIMATE NORMAL; TOTAL CELLS COUNTED 100; TOXIC GRANULATION 1+
--- NOTE | 2021-12-18 11:48 | NUR ---
PAGER ID: [phone] MESSAGE: [phone] Eriberto, 2 hour repeat lactic was 4.8, vanco infusing now. thanks shamir [phone]
--- NOTE | 2021-12-18 12:08 | NUR ---
Spoke with daughter and updated on plan of care
[2021-12-18 15:56] VITALS: BP 123/66
[2021-12-18] MEDS: cefepime 1GM in D5W 50mL 50 ML IV SCH (16:19)
[2021-12-18] MEDS ORDERED: salt irrigation nasal spray 45 ML SPRAY NS PRN (16:25)
[2021-12-18] MEDS ORDERED: benzonatate 100mg capsule PO PRN (16:25)
[2021-12-18 18:00] VITALS: BP 125/74
--- NOTE | 2021-12-18 18:00 | NUR ---
Patient in room [facility]TH[facility] 4018. I have received report from GAMALIEL Clay and had the opportunity to ask questions and assume patient care.
--- NOTE | 2021-12-18 18:16 | NUR ---
I agree with preceptee documentation
--- NOTE | 2021-12-18 18:16 | NUR ---
Gave report to Silvia ALSTON
[2021-12-18] MEDS: atorvastatin 10mg tablet PO SCH (19:38)
[2021-12-18] MEDS: latanoprost 0.005% 2.5ml ophthalmic drops EACHEYE SCH (19:39)
[2021-12-18] MEDS: dorzolamide/timolol (Cosopt) ophthalmic drops 10ml bottle EACHEYE SCH (19:39)
[2021-12-18 22:00] VITALS: BP 117/65
[2021-12-18] MEDS: VANCOMYCIN 1GM/200ML IVPB 200 ML IV SCH (22:29)
[2021-12-19] MEDS: cefepime 1GM in D5W 50mL 50 ML IV SCH ×3 (00:17→16:14)
[2021-12-19 01:37] VITALS: BP 131/76
--- NOTE | 2021-12-19 06:11 | NUR ---
Problems reprioritized. Patient report given, questions answered & plan of care reviewed with GAMALIEL Clay.
[2021-12-19 06:25] VITALS: BP 119/79
--- NOTE | 2021-12-19 06:27 | NUR ---
Patient in room [facility] 4018. I have received report from Silvia ALSTON and had the opportunity to ask questions and assume patient care.
[2021-12-19 07:34] LABS: EOSINOPHILS % (AUTO) 0.1 % (0-6); HEMOGLOBIN 15.7 g/dl (14.0-17.9); LYMPHOCYTES # (AUTO) 0.3 X10'3 (1.1-4.8); MEAN CORPUSCULAR HEMOGLOBIN 29.3 PG (27.0-31.0); MEAN PLATELET VOLUME 10.2 FL (7.4-10.4); MONOCYTES # (AUTO) 0.4 X10'3 (0-0.9)
[2021-12-19 07:37] LABS: BASOPHILS # (AUTO) 0.3 X10'3 (0-0.2); HEMATOCRIT 47.7 % (42.0-52.0); MEAN CORPUSCULAR HGB CONC 32.9 g/dL (33.0-36.5); MONOCYTES % (AUTO) 1.4 % (2-12); NEUTROPHILS # (AUTO) 27.8 X10'3 (1.8-7.7); NEUTROPHILS % (AUTO) 96.5 % (42-75); PLATELET COUNT 169 X10'3 (140-440); RED BLOOD COUNT 5.35 X10'6 (4.70-6.10); RED CELL DISTRIBUTION WIDTH 14.1 % (11.5-14.5)
[2021-12-19] MEDS: methylPREDNISolone sod succ/PF 40mg inj. IV SCH ×2 (07:43→19:43)
[2021-12-19] MEDS: enoxaparin 100mg/ml syringe SUBCUT SCH ×2 (07:44→19:44)
[2021-12-19 07:47] LABS: WHITE BLOOD COUNT 28.8 X10'3 (4.5-11.0)
--- NOTE | 2021-12-19 07:47 | NUR ---
PAGER ID: [phone] MESSAGE: [phone] Eriberto critical WBC 28.8, thanks shamir [phone]
[2021-12-19] MEDS: lactose-reduced food (Ensure Enlive) - 237ml bottle PO SCH ×3 (08:00→18:00)
[2021-12-19] MEDS: K and/or MAG REPLACEMENT MC SCH ×2 (08:00→19:44)
[2021-12-19 08:10] LABS: D-DIMER 6.79 MG/L FEU (0-0.50)
[2021-12-19 08:25] LABS: ALANINE AMINOTRANSFERASE 88 U/L (12-78); ALBUMIN 2.4 G/DL (3.4-5.0); ALKALINE PHOSPHATASE 104 IU/L (46-116); ANION GAP 9 (8-16); ASPARTATE AMINO TRANSFERASE 33 U/L (10-37); BILIRUBIN,TOTAL 0.8 MG/DL (0.1-1.0); BLOOD UREA NITROGEN 27 MG/DL (7-18); BUN/CREATININE RATIO 31.8 (5.4-32.0); C-REACTIVE PROTEIN 0.18 MG/DL (0.0-0.5); CALCIUM 7.1 MG/DL (8.5-10.1); CHLORIDE 103 MMOL/L (99-107); CREATININE 0.85 MG/DL (0.60-1.10); GLUCOSE 179 MG/DL (70-104); POTASSIUM 4.8 MMOL/L (3.5-5.1); SODIUM 138 MMOL/L (135-145); TOTAL CARBON DIOXIDE 25.7 MMOL/L (24-32); TOTAL PROTEIN 4.9 G/DL (6.4-8.2); eGFR 89 ML/MIN
[2021-12-19 10:00] VITALS: BP 127/75
[2021-12-19 10:20] LABS: TOTAL CELLS COUNTED 100
[2021-12-19 10:21] LABS: PLATELET ESTIMATE NORMAL; TOXIC GRANULATION 1+
[2021-12-19] MEDS: VANCOMYCIN 1GM/200ML IVPB 200 ML IV SCH ×2 (11:01→22:36)
[2021-12-19] MEDS: normal saline 1000ml 1,000 ML IV SCH ×2 (11:17→19:45)
[2021-12-19 14:00] VITALS: BP 125/60
--- NOTE | 2021-12-19 15:03 | NUR ---
PAGER ID: [phone] MESSAGE: Eriberto Bell do you still want him on normal saline at 125?? shamir [phone] (72 character message out of a maximum of 240)
[2021-12-19 17:00] VITALS: BP 121/74
--- NOTE | 2021-12-19 17:52 | NUR ---
Telemetry called to let this RN know that sp02 was in the 70s, upon entering room patients bedside monitor also was reading low. Noticed that high flow did not sound right and felt that it was not blowing enough air out of the prongs. One of the connections had come loose, I had placed patient on BIPAP during this time to figure out what was going on. Sp02 improved to 94% on BIPAP, sealed connections on high flow and placed back on patient. Sp02 92% on 60 liters 100% fi02 with 15 liters on nonrebreather.
--- NOTE | 2021-12-19 18:00 | NUR ---
Patient in room [facility]TH[facility] 4018. I have received report from GAMALIEL Clay and had the opportunity to ask questions and assume patient care.
--- NOTE | 2021-12-19 18:10 | NUR ---
Problems reprioritized. Patient report given, questions answered & plan of care reviewed with Silvia ALSTON.
--- NOTE | 2021-12-19 18:14 | NUR ---
I agree with preceptee documentation
[2021-12-19] MEDS: atorvastatin 10mg tablet PO SCH (19:44)
[2021-12-19] MEDS: latanoprost 0.005% 2.5ml ophthalmic drops EACHEYE SCH (19:45)
[2021-12-19] MEDS: dorzolamide/timolol (Cosopt) ophthalmic drops 10ml bottle EACHEYE SCH (19:45)
[2021-12-19] MEDS: fluconazole-Diflucan 100MG/NS 50 ML IV SCH (20:26)
[2021-12-19 22:00] VITALS: BP 137/79
[2021-12-19] MEDS ORDERED: VANCOMYCIN LEVEL IV ONE (22:30)
[2021-12-20] MEDS: cefepime 1GM in D5W 50mL 50 ML IV SCH ×3 (00:03→16:00)
[2021-12-20 02:00] VITALS: BP 113/66
[2021-12-20] MEDS: normal saline 1000ml 1,000 ML IV SCH ×3 (02:13→19:35)
[2021-12-20 06:00] VITALS: BP_SYST 102; BP_SYST 141; BP_DIAS 54; BP_DIAS 72
--- NOTE | 2021-12-20 06:32 | NUR ---
Problems reprioritized. Patient report given, questions answered & plan of care reviewed with GAMALIEL Arnold.
[2021-12-20] MEDS: K and/or MAG REPLACEMENT MC SCH ×2 (08:00→19:37)
[2021-12-20] MEDS: enoxaparin 100mg/ml syringe SUBCUT SCH ×2 (08:36→19:37)
[2021-12-20] MEDS: methylPREDNISolone sod succ/PF 40mg inj. IV SCH ×2 (08:36→19:36)
[2021-12-20] MEDS: lactose-reduced food (Ensure Enlive) - 237ml bottle PO SCH ×3 (08:51→18:23)
[2021-12-20 10:00] VITALS: BP_SYST 111; BP_SYST 144; BP_DIAS 69; BP_DIAS 73
[2021-12-20 10:58] LABS: D-DIMER 7.31 MG/L FEU (0-0.50)
[2021-12-20 11:29] LABS: ALANINE AMINOTRANSFERASE 86 U/L (12-78); ALBUMIN 2.7 G/DL (3.4-5.0); ALBUMIN/GLOBULIN RATIO 1.1 (1.1-1.5); ALKALINE PHOSPHATASE 115 IU/L (46-116); ANION GAP 12 (8-16); ASPARTATE AMINO TRANSFERASE 39 U/L (10-37); BILIRUBIN,TOTAL 0.8 MG/DL (0.1-1.0); BLOOD UREA NITROGEN 34 MG/DL (7-18); BUN/CREATININE RATIO 36.6 (5.4-32.0); CHLORIDE 101 MMOL/L (99-107); CREATININE 0.93 MG/DL (0.60-1.10); GLUCOSE 266 MG/DL (70-104); POTASSIUM 4.7 MMOL/L (3.5-5.1); SODIUM 136 MMOL/L (135-145); TOTAL CARBON DIOXIDE 23.1 MMOL/L (24-32); TOTAL PROTEIN 5.1 G/DL (6.4-8.2); eGFR 80 ML/MIN
[2021-12-20 11:30] LABS: C-REACTIVE PROTEIN 0.14 MG/DL (0.0-0.5)
[2021-12-20 12:29] LABS: BASOPHILS # (AUTO) 0.1 X10'3 (0-0.2); BASOPHILS % (AUTO) 0.2 % (0-1); EOSINOPHILS % (AUTO) 0 % (0-6); HEMATOCRIT 48.8 % (42.0-52.0); HEMOGLOBIN 16.1 g/dl (14.0-17.9); LYMPHOCYTES # (AUTO) 0.2 X10'3 (1.1-4.8); LYMPHOCYTES % (AUTO) 0.6 % (21-51); MEAN CORPUSCULAR HEMOGLOBIN 29.6 PG (27.0-31.0); MEAN CORPUSCULAR HGB CONC 32.9 g/dL (33.0-36.5); MEAN CORPUSCULAR VOLUME 89.9 FL (78-98); MEAN PLATELET VOLUME 10.3 FL (7.4-10.4); MONOCYTES # (AUTO) 0.5 X10'3 (0-0.9); MONOCYTES % (AUTO) 1.8 % (2-12); NEUTROPHILS # (AUTO) 28.2 X10'3 (1.8-7.7); NEUTROPHILS % (AUTO) 97.4 % (42-75); PLATELET COUNT 165 X10'3 (140-440); RED BLOOD COUNT 5.43 X10'6 (4.70-6.10)
[2021-12-20] MEDS: VANCOMYCIN 1GM/200ML IVPB 200 ML IV SCH (12:45)
[2021-12-20 12:53] LABS: PLATELET ESTIMATE NORMAL; TOTAL CELLS COUNTED 100
--- NOTE | 2021-12-20 13:04 | NUR ---
Dr. Linares made aware of patient 4018 [facility] WBC 29.0 last result 28.8.
[2021-12-20 14:00] VITALS: BP 110/77
[2021-12-20 18:00] VITALS: BP 127/77
--- NOTE | 2021-12-20 18:09 | NUR ---
Problems reprioritized. Patient report given, questions answered & plan of care reviewed with Silvia.
--- NOTE | 2021-12-20 18:10 | NUR ---
Patient in room [facility]TH[facility] 4018. I have received report from GAMALIEL Arnold and had the opportunity to ask questions and assume patient care.
[2021-12-20] MEDS: fluconazole-Diflucan 100MG/NS 50 ML IV SCH (19:37)
[2021-12-20] MEDS: dorzolamide/timolol (Cosopt) ophthalmic drops 10ml bottle EACHEYE SCH (19:38)
[2021-12-20] MEDS: latanoprost 0.005% 2.5ml ophthalmic drops EACHEYE SCH (19:39)
[2021-12-20] MEDS: atorvastatin 10mg tablet PO SCH (19:40)
[2021-12-20 22:00] VITALS: BP 113/61
[2021-12-20] MEDS: VANCOmycin 1250MG/NS 250ml Bag 250 ML IV SCH (23:05)
[2021-12-21] MEDS: cefepime 1GM in D5W 50mL 50 ML IV SCH ×3 (00:26→16:03)
[2021-12-21 02:00] VITALS: BP 120/66
[2021-12-21 06:00] VITALS: BP 134/71
--- NOTE | 2021-12-21 06:09 | NUR ---
Problems reprioritized. Patient report given, questions answered & plan of care reviewed with GAMALIEL Crum.
[2021-12-21] MEDS: normal saline 1000ml 1,000 ML IV SCH (07:13)
[2021-12-21] MEDS: enoxaparin 100mg/ml syringe SUBCUT SCH ×2 (07:14→21:03)
[2021-12-21] MEDS: methylPREDNISolone sod succ/PF 40mg inj. IV SCH ×2 (07:15→21:11)
[2021-12-21] MEDS: lactose-reduced food (Ensure Enlive) - 237ml bottle PO SCH ×3 (08:00→18:42)
[2021-12-21] MEDS: K and/or MAG REPLACEMENT MC SCH ×2 (08:00→20:00)
[2021-12-21 08:33] LABS: BASOPHILS % (AUTO) 0.1 % (0-1); EOSINOPHILS % (AUTO) 0.1 % (0-6); HEMATOCRIT 49.1 % (42.0-52.0); LYMPHOCYTES # (AUTO) 0.3 X10'3 (1.1-4.8); MEAN CORPUSCULAR HEMOGLOBIN 29.6 PG (27.0-31.0); MEAN CORPUSCULAR HGB CONC 32.5 g/dL (33.0-36.5); MEAN CORPUSCULAR VOLUME 90.9 FL (78-98); MEAN PLATELET VOLUME 10.7 FL (7.4-10.4); MONOCYTES # (AUTO) 0.7 X10'3 (0-0.9); MONOCYTES % (AUTO) 2.4 % (2-12); NEUTROPHILS # (AUTO) 27.7 X10'3 (1.8-7.7); NEUTROPHILS % (AUTO) 96.4 % (42-75); PLATELET COUNT 182 X10'3 (140-440); RED CELL DISTRIBUTION WIDTH 13.9 % (11.5-14.5)
[2021-12-21 08:44] LABS: WHITE BLOOD COUNT 28.7 X10'3 (4.5-11.0)
[2021-12-21 09:01] LABS: ALANINE AMINOTRANSFERASE 73 U/L (12-78); ALBUMIN 2.4 G/DL (3.4-5.0); ALBUMIN/GLOBULIN RATIO 1.1 (1.1-1.5); ALKALINE PHOSPHATASE 97 IU/L (46-116); ANION GAP 12 (8-16); BILIRUBIN,TOTAL 0.8 MG/DL (0.1-1.0); BLOOD UREA NITROGEN 30 MG/DL (7-18); BUN/CREATININE RATIO 51.7 (5.4-32.0); C-REACTIVE PROTEIN 0.11 MG/DL (0.0-0.5); CALCIUM 7.1 MG/DL (8.5-10.1); CHLORIDE 103 MMOL/L (99-107); CREATININE 0.58 MG/DL (0.60-1.10); GLUCOSE 210 MG/DL (70-104); SODIUM 138 MMOL/L (135-145); TOTAL CARBON DIOXIDE 23.5 MMOL/L (24-32); TOTAL PROTEIN 4.6 G/DL (6.4-8.2); eGFR > 90 ML/MIN
[2021-12-21 09:02] LABS: ASPARTATE AMINO TRANSFERASE 41 U/L (10-37)
[2021-12-21 09:03] LABS: POTASSIUM 4.6 MMOL/L (3.5-5.1)
--- NOTE | 2021-12-21 09:05 | NUR ---
Reassessment: Pt continues on Regular diet w/ avg intake 50% x 9 meals and 100% x 9 ONS meeting est nutrient needs at this time. Per documentation pt goes between BiPAP at 100% and 60L HFNC. Noted pt Glu 159-266mg/dl last couple days not on glycemic protocol; [place] d/w RN regarding glycemic protocol and routine Glu checks while on solumedrol if MD agreeable. LBM 12/17. Will continue to monitor for further nutrition intervention needs this admit. Recommendations: 1) Continue regular diet; encourage PO 2) Ensure Enlive TIDWM 3) Routine bowel care 4) Glycemic protocol per MD discretion 5) Scaled weight this admit; weekly scaled weights thereafter Addendum: 12/21/21 at [address] Amended: Links added.
[2021-12-21 09:36] LABS: TOTAL CELLS COUNTED 100
[2021-12-21 09:37] LABS: PLATELET ESTIMATE NORMAL; STOMATOCYTES FEW; TEAR DROP CELLS FEW
[2021-12-21 10:00] VITALS: BP 148/79
[2021-12-21] MEDS: VANCOmycin 1250MG/NS 250ml Bag 250 ML IV SCH (10:26)
[2021-12-21 14:00] VITALS: BP 125/55
[2021-12-21] MEDS ORDERED: dextrose 50%-water 50ml dispensing syringe IV PRN ×2 (15:45)
[2021-12-21] MEDS ORDERED: dextrose ORAL solution 15 GM/59 ML bottle PO PRN ×2 (15:45)
[2021-12-21] MEDS ORDERED: glucagon, human recombinant 1mg kit SUBCUT PRN (15:45)
[2021-12-21] MEDS ORDERED: MESSAGE TO PHARMACY PO ONE (15:45)
[2021-12-21 16:05] LABS: HEMOGLOBIN A1C 7.4 % (4.5-6.2)
[2021-12-21 18:35] VITALS: BP 140/69
[2021-12-21] MEDS: insulin Lispro (HumaLOG) vial - multi-dose SQ SCH ×2 (18:48→21:01)
[2021-12-21] MEDS: latanoprost 0.005% 2.5ml ophthalmic drops EACHEYE SCH (18:49)
[2021-12-21] MEDS: insulin glargine (Lantus) pen - multi-dose SQ SCH (21:02)
[2021-12-21] MEDS: fluconazole-Diflucan 100MG/NS 50 ML IV SCH (21:03)
[2021-12-21] MEDS: atorvastatin 10mg tablet PO SCH (21:04)
[2021-12-21] MEDS: dorzolamide/timolol (Cosopt) ophthalmic drops 10ml bottle EACHEYE SCH (21:12)
[2021-12-21 22:00] VITALS: BP 143/78
[2021-12-21] MEDS ORDERED: VANCOMYCIN LEVEL IV ONE (22:30)
[2021-12-21] MEDS: vancomycin inj. 1,250 MG in dextrose 5%-water 250 ML IV SCH (22:45)
[2021-12-22] MEDS: cefepime 1GM in D5W 50mL 50 ML IV SCH ×3 (00:44→16:57)
[2021-12-22 02:00] VITALS: BP 132/70
[2021-12-22 06:00] VITALS: BP 120/76
--- NOTE | 2021-12-22 06:33 | NUR ---
Problems reprioritized. Patient report given, questions answered & plan of care reviewed with GAMALIEL ANGLIN.
--- NOTE | 2021-12-22 07:28 | NUR ---
Diabetes Consult: Noted A1c 7.4 though pt not appropriate for DM ed at this time given high oxygen requirement. Will defer ed until pt more appropriate Addendum: 12/22/21 at [address] Amended: Links added.
[2021-12-22] MEDS: K and/or MAG REPLACEMENT MC SCH ×2 (08:00→20:00)
[2021-12-22 08:22] LABS: BASOPHILS % (AUTO) 0.1 % (0-1); EOSINOPHILS % (AUTO) 0.1 % (0-6); HEMATOCRIT 49.2 % (42.0-52.0); HEMOGLOBIN 16.3 g/dl (14.0-17.9); LYMPHOCYTES # (AUTO) 0.4 X10'3 (1.1-4.8); LYMPHOCYTES % (AUTO) 1.2 % (21-51); MEAN CORPUSCULAR HEMOGLOBIN 29.5 PG (27.0-31.0); MEAN CORPUSCULAR HGB CONC 33.2 g/dL (33.0-36.5); MEAN CORPUSCULAR VOLUME 88.9 FL (78-98); MEAN PLATELET VOLUME 10.3 FL (7.4-10.4); MONOCYTES # (AUTO) 0.9 X10'3 (0-0.9); MONOCYTES % (AUTO) 3.1 % (2-12); NEUTROPHILS # (AUTO) 28.4 X10'3 (1.8-7.7); NEUTROPHILS % (AUTO) 95.5 % (42-75); PLATELET COUNT 190 X10'3 (140-440); RED BLOOD COUNT 5.53 X10'6 (4.70-6.10)
[2021-12-22 08:43] LABS: WHITE BLOOD COUNT 29.7 X10'3 (4.5-11.0)
[2021-12-22] MEDS: methylPREDNISolone sod succ/PF 40mg inj. IV SCH ×2 (08:49→20:55)
[2021-12-22] MEDS: lactose-reduced food (Ensure Enlive) - 237ml bottle PO SCH ×4 (08:51→18:37)
[2021-12-22] MEDS: enoxaparin 100mg/ml syringe SUBCUT SCH ×2 (08:51→20:56)
[2021-12-22 09:05] LABS: D-DIMER 3.21 MG/L FEU (0-0.50)
--- NOTE | 2021-12-22 09:17 | NUR ---
Paged Dr. Parisi regarding critical WBC: PAGER ID: [phone] MESSAGE: Rikki Wei [phone] Parisi, Critical WBC 29.7 for this patient today. Thanks, Kim RN, ext [phone] (102 character message out of a maximum of 240)
[2021-12-22 10:00] VITALS: BP 131/70
[2021-12-22] MEDS: insulin Lispro (HumaLOG) vial - multi-dose SQ SCH ×4 (11:08→20:58)
[2021-12-22] MEDS: vancomycin inj. 1,250 MG in dextrose 5%-water 250 ML IV SCH ×2 (12:15→23:57)
[2021-12-22 12:48] LABS: ALANINE AMINOTRANSFERASE 90 U/L (12-78); ALBUMIN 2.9 G/DL (3.4-5.0); ALBUMIN/GLOBULIN RATIO 1.1 (1.1-1.5); ANION GAP 8 (8-16); ASPARTATE AMINO TRANSFERASE 37 U/L (10-37); BILIRUBIN,TOTAL 1.2 MG/DL (0.1-1.0); BLOOD UREA NITROGEN 27 MG/DL (7-18); BUN/CREATININE RATIO 39.1 (5.4-32.0); CALCIUM 8.1 MG/DL (8.5-10.1); CHLORIDE 102 MMOL/L (99-107); CREATININE 0.69 MG/DL (0.60-1.10); GLUCOSE 196 MG/DL (70-104); POTASSIUM 4.6 MMOL/L (3.5-5.1); SODIUM 135 MMOL/L (135-145); TOTAL CARBON DIOXIDE 25.1 MMOL/L (24-32); TOTAL PROTEIN 5.5 G/DL (6.4-8.2); eGFR > 90 ML/MIN
[2021-12-22 15:52] LABS: TOTAL CELLS COUNTED 100
[2021-12-22 15:54] LABS: ELLIPTOCYTES FEW; PLATELET ESTIMATE NORMAL; TEAR DROP CELLS FEW
[2021-12-22 18:00] VITALS: BP 125/78
--- NOTE | 2021-12-22 18:25 | NUR ---
Patient in room [facility]TH[facility] 4018. I have received report from GAMALIEL ANGLIN and had the opportunity to ask questions and assume patient care.
--- NOTE | 2021-12-22 18:26 | NUR ---
Problems reprioritized. Patient report given, questions answered & plan of care reviewed with GAMALIEL Jennings.
[2021-12-22] MEDS: latanoprost 0.005% 2.5ml ophthalmic drops EACHEYE SCH (19:51)
[2021-12-22] MEDS: atorvastatin 10mg tablet PO SCH (20:55)
[2021-12-22] MEDS: insulin glargine (Lantus) pen - multi-dose SQ SCH (20:57)
[2021-12-22] MEDS: dorzolamide/timolol (Cosopt) ophthalmic drops 10ml bottle EACHEYE SCH (21:00)
[2021-12-22 22:00] VITALS: BP 125/75
[2021-12-23] MEDS: cefepime 1GM/NS ADD-VANTAGE 100 ML IV SCH ×2 (01:57→07:58)
[2021-12-23 02:00] VITALS: BP 130/79
[2021-12-23 06:00] VITALS: BP 113/81
--- NOTE | 2021-12-23 06:14 | NUR ---
Problems reprioritized. Patient report given, questions answered & plan of care reviewed with GAMALIEL KNOX.
[2021-12-23] MEDS: methylPREDNISolone sod succ/PF 40mg inj. IV SCH ×2 (07:51→20:00)
[2021-12-23] MEDS: enoxaparin 100mg/ml syringe SUBCUT SCH ×2 (07:52→20:03)
[2021-12-23] MEDS: lactose-reduced food (Ensure Enlive) - 237ml bottle PO SCH ×3 (08:00→18:26)
[2021-12-23] MEDS: insulin Lispro (HumaLOG) vial - multi-dose SQ SCH ×4 (08:13→20:54)
[2021-12-23 08:40] LABS: BASOPHILS % (AUTO) 0.1 % (0-1); EOSINOPHILS # (AUTO) 0.1 X10'3 (0-0.9); EOSINOPHILS % (AUTO) 0.3 % (0-6); HEMATOCRIT 53.8 % (42.0-52.0); HEMOGLOBIN 17.9 g/dl (14.0-17.9); LYMPHOCYTES # (AUTO) 0.6 X10'3 (1.1-4.8); MEAN CORPUSCULAR HGB CONC 33.2 g/dL (33.0-36.5); MEAN CORPUSCULAR VOLUME 90.4 FL (78-98); MEAN PLATELET VOLUME 9.9 FL (7.4-10.4); MONOCYTES # (AUTO) 0.8 X10'3 (0-0.9); MONOCYTES % (AUTO) 2.6 % (2-12); PLATELET COUNT 171 X10'3 (140-440); RED BLOOD COUNT 5.94 X10'6 (4.70-6.10); RED CELL DISTRIBUTION WIDTH 14.3 % (11.5-14.5)
[2021-12-23 08:45] LABS: WHITE BLOOD COUNT 30.5 X10'3 (4.5-11.0)
[2021-12-23 08:49] LABS: D-DIMER 4.25 MG/L FEU (0-0.50)
--- NOTE | 2021-12-23 09:35 | NUR ---
Patient c/o chest pressure , EKG was performed . DR Juan Jose Parisi was notified as ordered troponin levels stat.
--- NOTE | 2021-12-23 09:38 | NUR ---
PAGER ID: [phone] MESSAGE: [phone] ULYSSES JOHNATHAN Patient is having chest pain troponins were 400 on admit. Can we repeat and do an EKG? Louisa [phone]
[2021-12-23 10:00] VITALS: BP 138/94
[2021-12-23 10:31] LABS: LARGE PLATELETS FEW; PLATELET ESTIMATE NORMAL; TOTAL CELLS COUNTED 100
[2021-12-23 10:32] LABS: TOXIC GRANULATION 1+; TOXIC VACUOLATION 1+
[2021-12-23 10:35] LABS: TEAR DROP CELLS FEW
[2021-12-23 12:14] LABS: ABG BASE EXCESS 1.4 mmol/L (-2.0-2.0); ABG HCO3 26.4 mmol/L (22.0-26.0); ABG OXYGEN SATURATION 92.1 % (94-97); ABG PCO2 (T) 42.8 mmHg (35.0-48.0); ABG PO2 (T) 61.4 mmHg (75.0-100.0); ALLEN'S TEST POSITIVE; FCOHb 0.3 % (0.0-3.9); FMetHb 0.4 % (0.0-1.5); FO2Hb 91.5 % (94-97); RESPIRATORY RATE 12 b/min; TIDAL VOLUME 819 mL; TOTAL HEMOGLOBIN 19.4 G/dl (14.0-18.0)
[2021-12-23] MEDS: normal saline 1000ml 1,000 ML IV SCH (15:20)
[2021-12-23 18:00] VITALS: BP 130/90
[2021-12-23] MEDS: K and/or MAG REPLACEMENT MC SCH (20:00)
[2021-12-23] MEDS: latanoprost 0.005% 2.5ml ophthalmic drops EACHEYE SCH (20:04)
[2021-12-23] MEDS: dorzolamide/timolol (Cosopt) ophthalmic drops 10ml bottle EACHEYE SCH (20:49)
[2021-12-23] MEDS: atorvastatin 10mg tablet PO SCH (20:50)
[2021-12-23] MEDS: insulin glargine (Lantus) pen - multi-dose SQ SCH (20:53)
--- NOTE | 2021-12-23 21:57 | NUR ---
didn't administer cospt eye drops. pt stated he received at 1730.
[2021-12-23 22:00] VITALS: BP 137/86
[2021-12-24 02:00] VITALS: BP 131/85
[2021-12-24] MEDS: normal saline 1000ml 1,000 ML IV SCH ×2 (05:12→21:01)
[2021-12-24 06:00] VITALS: BP 135/91
--- NOTE | 2021-12-24 06:38 | NUR ---
Problems reprioritized. Patient report given, questions answered & plan of care reviewed with GAMALIEL KNOX.
[2021-12-24] MEDS: lactose-reduced food (Ensure Enlive) - 237ml bottle PO SCH ×3 (07:39→18:00)
[2021-12-24] MEDS: methylPREDNISolone sod succ/PF 40mg inj. IV SCH ×2 (07:39→21:01)
[2021-12-24] MEDS: enoxaparin 100mg/ml syringe SUBCUT SCH ×2 (07:39→21:01)
[2021-12-24] MEDS: insulin Lispro (HumaLOG) vial - multi-dose SQ SCH ×3 (07:43→17:44)
[2021-12-24] MEDS: K and/or MAG REPLACEMENT MC SCH ×2 (08:00→20:00)
[2021-12-24 08:37] LABS: BASOPHILS # (AUTO) 0.1 X10'3 (0-0.2); BASOPHILS % (AUTO) 0.3 % (0-1); EOSINOPHILS # (AUTO) 0.1 X10'3 (0-0.9); EOSINOPHILS % (AUTO) 0.3 % (0-6); HEMATOCRIT 52.9 % (42.0-52.0); HEMOGLOBIN 17.6 g/dl (14.0-17.9); LYMPHOCYTES # (AUTO) 0.6 X10'3 (1.1-4.8); LYMPHOCYTES % (AUTO) 1.8 % (21-51); MEAN CORPUSCULAR HEMOGLOBIN 29.8 PG (27.0-31.0); MEAN CORPUSCULAR HGB CONC 33.3 g/dL (33.0-36.5); MEAN CORPUSCULAR VOLUME 89.4 FL (78-98); MEAN PLATELET VOLUME 10.5 FL (7.4-10.4); MONOCYTES # (AUTO) 0.9 X10'3 (0-0.9); MONOCYTES % (AUTO) 2.8 % (2-12); NEUTROPHILS # (AUTO) 31.5 X10'3 (1.8-7.7); NEUTROPHILS % (AUTO) 94.8 % (42-75); PLATELET COUNT 161 X10'3 (140-440); RED BLOOD COUNT 5.92 X10'6 (4.70-6.10); RED CELL DISTRIBUTION WIDTH 14.2 % (11.5-14.5)
[2021-12-24 08:41] LABS: WHITE BLOOD COUNT 33.2 X10'3 (4.5-11.0)
[2021-12-24 09:14] LABS: ALANINE AMINOTRANSFERASE 106 U/L (12-78); ALBUMIN 3.1 G/DL (3.4-5.0); ALBUMIN/GLOBULIN RATIO 1.2 (1.1-1.5); ANION GAP 10 (8-16); ASPARTATE AMINO TRANSFERASE 46 U/L (10-37); BILIRUBIN,TOTAL 1.7 MG/DL (0.1-1.0); BLOOD UREA NITROGEN 36 MG/DL (7-18); C-REACTIVE PROTEIN 0.09 MG/DL (0.0-0.5); CALCIUM 7.9 MG/DL (8.5-10.1); CHLORIDE 103 MMOL/L (99-107); CREATININE 0.75 MG/DL (0.60-1.10); GLUCOSE 155 MG/DL (70-104); POTASSIUM 4.9 MMOL/L (3.5-5.1); SODIUM 139 MMOL/L (135-145); TOTAL CARBON DIOXIDE 25.9 MMOL/L (24-32); TOTAL PROTEIN 5.6 G/DL (6.4-8.2); eGFR > 90 ML/MIN
[2021-12-24 10:00] VITALS: BP 128/83
--- NOTE | 2021-12-24 10:03 | NUR ---
PAGED PICC RN FOR PICC PLACEMENT
--- NOTE | 2021-12-24 10:18 | NUR ---
TPN Consult: Pt PO ~65% avg meals and 100% Ensure Enlive TIDWM past 3.5 days per EMR meeting estimated needs. RD attempted to reach RN for clarification regarding PN given PO trends however not available. RD paged DO regarding PO trends; per DO PO adequate at this time no further nutrition intervention needs pending further information at this time. Addendum: 12/24/21 at [address] Amended: Links added.
[2021-12-24 10:34] LABS: PLATELET ESTIMATE NORMAL; TOTAL CELLS COUNTED 100
[2021-12-24 10:37] LABS: TEAR DROP CELLS FEW
[2021-12-24 14:00] VITALS: BP 136/85
[2021-12-24 18:00] VITALS: BP 144/87
[2021-12-24] MEDS: insulin glargine (Lantus) pen - multi-dose SQ SCH (20:59)
[2021-12-24] MEDS: dorzolamide/timolol (Cosopt) ophthalmic drops 10ml bottle EACHEYE SCH (21:00)
[2021-12-24] MEDS: latanoprost 0.005% 2.5ml ophthalmic drops EACHEYE SCH (21:00)
[2021-12-24] MEDS: atorvastatin 10mg tablet PO SCH (21:00)
[2021-12-24 22:00] VITALS: BP 123/80
[2021-12-25] VITALS (34 sets, daily range): BP systolic 76–181; BP diastolic 43–94
--- NOTE | 2021-12-25 06:53 | NUR ---
Page Sent PAGER ID: [phone] MESSAGE: NEDA 0020-RE: JOHNATHAN ARORA [phone]...PT HAVING HIGH HR 180-190'S, COUGHING UP BLOOD, WITH CLOTS...HX HTN, NO HEART MEDS
[2021-12-25] MEDS ORDERED: metoprolol tartrate 25mg tablet PO ONE ×2 (07:00→07:10)
--- NOTE | 2021-12-25 07:00 | NUR ---
REC'D CALL FROM TELE, PTS HR 180-190'S...ASSESSED PT, PT COUGHING UP JIMMY BLOOD, SAO2 76% ON 50L HF WITH 15L NRB...RT PAGED, DAY PAGED AND PM PAGED...DR TALAVERA CALLED BACK, REC'D VERBAL ORDERS 25MG METOPROLOL ONCE, STAT CXR, STOP LOVENOX...DR RODARTE CALLED IN ADDED STAT EKG. WILL CONTINUE TO MONITOR
[2021-12-25] MEDS: normal saline 1000ml 1,000 ML IV SCH ×5 (07:20→20:40)
--- NOTE | 2021-12-25 07:30 | NUR ---
PAGER ID: [phone] MESSAGE: [phone] Eriberto There are ischemic changed, NO STEMI on the EKG, Dr. Mack read the EKG. Patient HR going in and out from 170-200's we have a television news photographer if you want to give [employer] IV. Louisa [phone]
[2021-12-25] MEDS ORDERED: metoprolol tartrate 1mg/ml inj IV ONE (07:35)
[2021-12-25] MEDS: K and/or MAG REPLACEMENT MC SCH ×2 (08:00→20:00)
[2021-12-25] MEDS: enoxaparin 100mg/ml syringe SUBCUT SCH ×2 (08:15→20:00)
[2021-12-25] MEDS: methylPREDNISolone sod succ/PF 40mg inj. IV SCH (08:26)
[2021-12-25] MEDS: lactose-reduced food (Ensure Enlive) - 237ml bottle PO SCH ×4 (08:26→12:42)
[2021-12-25 08:37] LABS: BASOPHILS % (AUTO) 0.1 % (0-1); EOSINOPHILS # (AUTO) 0.1 X10'3 (0-0.9); EOSINOPHILS % (AUTO) 0.3 % (0-6); HEMATOCRIT 51.3 % (42.0-52.0); LYMPHOCYTES # (AUTO) 0.6 X10'3 (1.1-4.8); LYMPHOCYTES % (AUTO) 1.9 % (21-51); MEAN CORPUSCULAR HGB CONC 33.1 g/dL (33.0-36.5); MEAN CORPUSCULAR VOLUME 90.6 FL (78-98); MEAN PLATELET VOLUME 10.9 FL (7.4-10.4); MONOCYTES % (AUTO) 3.4 % (2-12); NEUTROPHILS # (AUTO) 27.4 X10'3 (1.8-7.7); NEUTROPHILS % (AUTO) 94.3 % (42-75); PLATELET COUNT 158 X10'3 (140-440); RED BLOOD COUNT 5.66 X10'6 (4.70-6.10); RED CELL DISTRIBUTION WIDTH 14.8 % (11.5-14.5)
[2021-12-25 08:43] LABS: WHITE BLOOD COUNT 29.1 X10'3 (4.5-11.0)
[2021-12-25] MEDS ORDERED: digoxin 250mcg/ml 2ml ampule IV ONE ×2 (09:00→16:00)
--- NOTE | 2021-12-25 09:04 | NUR ---
Page Sent PAGER ID: [phone] MESSAGE: [id number]. Tg Qureshi. HR in the 180's. he's received metoprolol 25 mg PO, and 10 mg IVP. he continues to have svt alternate with afib. O2 is still down in the 80's , no > 84. we received the dig just now, giving it soon. COVID unit.
[2021-12-25 09:56] LABS: ALANINE AMINOTRANSFERASE 105 U/L (12-78); ALBUMIN 2.9 G/DL (3.4-5.0); ALBUMIN/GLOBULIN RATIO 1.2 (1.1-1.5); ALKALINE PHOSPHATASE 110 IU/L (46-116); ANION GAP 10 (8-16); ASPARTATE AMINO TRANSFERASE 49 U/L (10-37); BILIRUBIN,TOTAL 1.5 MG/DL (0.1-1.0); BLOOD UREA NITROGEN 43 MG/DL (7-18); CHLORIDE 105 MMOL/L (99-107); CREATININE 0.86 MG/DL (0.60-1.10); GLUCOSE 186 MG/DL (70-104); POTASSIUM 5.4 MMOL/L (3.5-5.1); SODIUM 139 MMOL/L (135-145); TOTAL CARBON DIOXIDE 24.1 MMOL/L (24-32); TOTAL PROTEIN 5.3 G/DL (6.4-8.2); eGFR 88 ML/MIN
[2021-12-25] MEDS ORDERED: NORepinephrine 8mg/ 250ml NS 250 ML IV ONE (10:13)
[2021-12-25 10:33] LABS: PLATELET ESTIMATE NORMAL; TOTAL CELLS COUNTED 100
[2021-12-25 10:34] LABS: LARGE PLATELETS FEW; TEAR DROP CELLS FEW
[2021-12-25 10:35] LABS: TOXIC GRANULATION 1+
[2021-12-25] MEDS ORDERED: amiodarone 50MG/ML inj IV ONE (10:40)
[2021-12-25] MEDS ORDERED: NORepinephrine 8mg/ 250ml NS 250 ML IV PRN ×2 (10:40→10:47)
[2021-12-25] MEDS ORDERED: amiodarone 150mg/dext, iso-os 100 ML IV ONE (10:50)
[2021-12-25] MEDS: propofol 1000mg/100ml bottle 100 ML IV SCH (11:30)
[2021-12-25] MEDS: amiodarone/D5 450MG/250ML BAG 250 ML IV SCH ×2 (11:30→19:05)
[2021-12-25] MEDS: vasopressin 40 UNIT in D5W 40ml IV DRIP IV SCH ×2 (11:30→16:00)
[2021-12-25 12:14] LABS: ABG BASE EXCESS -18.7 mmol/L (-2.0-2.0); ABG HCO3 14.8 mmol/L (22.0-26.0); ABG OXYGEN SATURATION 89.4 % (94-97); ABG PCO2 (T) 71.2 mmHg (35.0-48.0); ABG PO2 (T) 82.7 mmHg (75.0-100.0); FCOHb 1.5 % (0.0-3.9); FMetHb 0.5 % (0.0-1.5); FO2Hb 87.6 % (94-97); RESPIRATORY RATE 25 b/min; TIDAL VOLUME 400 mL; TOTAL HEMOGLOBIN 15.8 G/dl (14.0-18.0)
[2021-12-25] MEDS ORDERED: sodium bicarbonate (8.4%) 1 mEq/ml syringe ONE (12:59)
[2021-12-25] MEDS ORDERED: sodium bicarbonate (8.4%) 1 mEq/ml syringe IV ONE (13:00)
--- NOTE | 2021-12-25 13:52 | NUR ---
TF consult: Per MD note patient's clinical condition declined and pt transferred to critical care and intubated. Per MD pt with an OGT in place and to begin TF, see recommendations below. LBM 12/24. Will continue to follow closely. Recommendations: 1) Continuous TF via OGT using Vital AF with 80 mL/hr goal rate. To provide 1920 mL total volume/day, 2304 kcal, 144 g protein, and 1557 mL water 2) Additional 125 mL water flush Q4H; monitor serum Na 3) Monitor for scaled weight and need to adjust nutrition recs 4) Prealbumin q Wednesday/ 5) Daily scaled weights 6) Routine bowel care 7) Discontinue ONS given NPO status Addendum: 12/25/21 at [address] Amended: Links added.
[2021-12-25] MEDS ORDERED: lactose-reduced food (Ensure Enlive) - 237ml bottle OGT SCH (14:09)
[2021-12-25] MEDS ORDERED: acetaminophen 325mg tablet OGT PRN ×2 (14:09)
[2021-12-25] MEDS ORDERED: atorvastatin 10mg tablet OGT SCH (14:09)
[2021-12-25] MEDS ORDERED: dextrose ORAL solution 15 GM/59 ML bottle OGT PRN ×2 (14:10)
[2021-12-25 14:13] LABS: PREALBUMIN 25.4 MG/DL (19-36)
[2021-12-25] MEDS ORDERED: propofol 1000mg/100ml bottle 100 ML IV ONE (14:54)
[2021-12-25] MEDS ORDERED: calcium gluconate inj. 1 GM in normal saline 100ml IV soln 100 ML IV ONE (16:40)
[2021-12-25] MEDS ORDERED: CALCIUM GLUC 1gm/50ml NACL,iso 100 ML IV ONE (16:46)
[2021-12-25] MEDS ORDERED: phenylephrine inj 50 MG in normal saline 250ml IV soln 250 ML IV SCH (16:55)
[2021-12-25] MEDS ORDERED: CEFEPIME 2gm in D5W 50mL 50 ML IV SCH (17:00)
[2021-12-25] MEDS: FENTANYL-0.9 % NACL/PF 100 ML IV PRN ×2 (17:10→19:43)
[2021-12-25] MEDS: sodium bicarbonate (8.4%) inj. 150 MEQ in dextrose 5%-water 1,000 ML IV SCH (17:27)
[2021-12-25 18:27] LABS: ALBUMIN 1.9 G/DL (3.4-5.0); ANION GAP 22 (8-16); BLOOD UREA NITROGEN 65 MG/DL (7-18); BUN/CREATININE RATIO 27.1 (5.4-32.0); CALCIUM 6.8 MG/DL (8.5-10.1); CHLORIDE 109 MMOL/L (99-107); GLUCOSE 143 MG/DL (70-104); SODIUM 145 MMOL/L (135-145); eGFR 27 ML/MIN
[2021-12-25 18:35] LABS: PHOSPHORUS 11.6 MG/DL (2.3-4.5)
[2021-12-25 18:36] LABS: POTASSIUM 6.5 MMOL/L (3.5-5.1); TOTAL CARBON DIOXIDE 14.3 MMOL/L (24-32)
[2021-12-25 18:54] LABS: BASOPHILS # (AUTO) 0.2 X10'3 (0-0.2); BASOPHILS % (AUTO) 0.5 % (0-1); EOSINOPHILS # (AUTO) 0.2 X10'3 (0-0.9); EOSINOPHILS % (AUTO) 0.4 % (0-6); LYMPHOCYTES # (AUTO) 0.5 X10'3 (1.1-4.8); LYMPHOCYTES % (AUTO) 1.1 % (21-51); MEAN PLATELET VOLUME 10.5 FL (7.4-10.4); MONOCYTES # (AUTO) 1.2 X10'3 (0-0.9); MONOCYTES % (AUTO) 2.4 % (2-12); NEUTROPHILS # (AUTO) 48.1 X10'3 (1.8-7.7); NEUTROPHILS % (AUTO) 95.6 % (42-75); PLATELET COUNT 116 X10'3 (140-440)
[2021-12-25] MEDS ORDERED: NORepinephrine 32 MG in Normal Saline 250ml IV soln IV SCH (19:00)
[2021-12-25 19:13] LABS: APTT 35 SECONDS (22-32); D-DIMER 11.96 MG/L FEU (0-0.50)
[2021-12-25 19:59] LABS: HEMATOCRIT 36.2 % (42.0-52.0); HEMOGLOBIN 12.6 g/dl (14.0-17.9); RED BLOOD COUNT 3.97 X10'6 (4.70-6.10); WHITE BLOOD COUNT 50.2 X10'3 (4.5-11.0)
[2021-12-25 19:59] LABS: ABG BASE EXCESS -15.3 mmol/L (-2.0-2.0); ABG HCO3 12.3 mmol/L (22.0-26.0); ABG OXYGEN SATURATION 89.7 % (94-97); ABG PCO2 (T) 35.4 mmHg (35.0-48.0); ABG PO2 (T) 63.9 mmHg (75.0-100.0); FCOHb 1.3 % (0.0-3.9); FMetHb 0.5 % (0.0-1.5); FO2Hb 88.1 % (94-97); PATIENT TEMPERATURE 37.2; PEEP 8 cm H2O; RESPIRATORY RATE 28 b/min; TOTAL HEMOGLOBIN 14.1 G/dl (14.0-18.0)
[2021-12-25 20:00] LABS: MEAN CORPUSCULAR HEMOGLOBIN 31.6 PG (27.0-31.0); MEAN CORPUSCULAR HGB CONC 34.7 g/dL (33.0-36.5); MEAN CORPUSCULAR VOLUME 91.3 FL (78-98)
[2021-12-25] MEDS ORDERED: oxymetazoline 15 ML nasal spray NS SCH (20:00)
[2021-12-25] MEDS: insulin glargine (Lantus) pen - multi-dose SQ SCH (21:00)
[2021-12-25 21:10] LABS: PLATELET ESTIMATE DECREASED; TOTAL CELLS COUNTED 100
[2021-12-25 21:12] LABS: BURR CELLS FEW; LARGE PLATELETS FEW; TEAR DROP CELLS FEW
[2021-12-25] MEDS: latanoprost 0.005% 2.5ml ophthalmic drops EACHEYE SCH (21:38)
[2021-12-25] MEDS: dorzolamide/timolol (Cosopt) ophthalmic drops 10ml bottle EACHEYE SCH (21:38)
[2021-12-25] MEDS ORDERED: sodium polystyrene sulfonate 15gm/60ml oral suspension PO ONE (21:40)
--- NOTE | 2021-12-25 21:58 | NUR ---
spoke with daughter re:code status; daughters wish to change pt to DNR; orders changed per MD.
[2021-12-26] VITALS (9 sets, daily range): BP systolic 94–122; BP diastolic 50–63
[2021-12-26] MEDS: FENTANYL-0.9 % NACL/PF 100 ML IV PRN ×2 (02:07→06:51)
[2021-12-26] MEDS: propofol 1000mg/100ml bottle 100 ML IV SCH (02:07)
[2021-12-26] MEDS: amiodarone/D5 450MG/250ML BAG 250 ML IV SCH (02:40)
[2021-12-26 03:33] LABS: BASOPHILS # (AUTO) 0.1 X10'3 (0-0.2); BASOPHILS % (AUTO) 0.2 % (0-1); EOSINOPHILS # (AUTO) 0.2 X10'3 (0-0.9); EOSINOPHILS % (AUTO) 0.5 % (0-6); HEMATOCRIT 44.2 % (42.0-52.0); HEMOGLOBIN 13.7 g/dl (14.0-17.9); LYMPHOCYTES # (AUTO) 0.6 X10'3 (1.1-4.8); LYMPHOCYTES % (AUTO) 1.2 % (21-51); MEAN CORPUSCULAR HEMOGLOBIN 29.4 PG (27.0-31.0); MEAN CORPUSCULAR HGB CONC 31.1 g/dL (33.0-36.5); MEAN CORPUSCULAR VOLUME 94.6 FL (78-98); MONOCYTES # (AUTO) 0.9 X10'3 (0-0.9); MONOCYTES % (AUTO) 1.8 % (2-12); NEUTROPHILS # (AUTO) 51.1 X10'3 (1.8-7.7); NEUTROPHILS % (AUTO) 96.3 % (42-75); PLATELET COUNT 98 X10'3 (140-440); RED BLOOD COUNT 4.68 X10'6 (4.70-6.10); RED CELL DISTRIBUTION WIDTH 15.1 % (11.5-14.5)
[2021-12-26 03:38] LABS: ABG BASE EXCESS -16.2 mmol/L (-2.0-2.0); ABG HCO3 13.5 mmol/L (22.0-26.0); ABG OXYGEN SATURATION 89.4 % (94-97); ABG PCO2 (T) 47.5 mmHg (35.0-48.0); ABG PO2 (T) 65.5 mmHg (75.0-100.0); FCOHb 1.5 % (0.0-3.9); FMetHb 0.4 % (0.0-1.5); FO2Hb 87.7 % (94-97); PATIENT TEMPERATURE 37.7; PEEP 8 cm H2O; RESPIRATORY RATE 28 b/min; TOTAL HEMOGLOBIN 15.4 G/dl (14.0-18.0)
[2021-12-26 03:57] LABS: ALBUMIN 1.9 G/DL (3.4-5.0); ALBUMIN/GLOBULIN RATIO 1.2 (1.1-1.5); ALKALINE PHOSPHATASE 109 IU/L (46-116); ANION GAP 24 (8-16); BLOOD UREA NITROGEN 70 MG/DL (7-18); BUN/CREATININE RATIO 27.7 (5.4-32.0); CHLORIDE 106 MMOL/L (99-107); CREATININE 2.53 MG/DL (0.60-1.10); GLUCOSE 281 MG/DL (70-104); MAGNESIUM 1.8 MG/DL (1.5-2.4); SODIUM 142 MMOL/L (135-145); TOTAL PROTEIN 3.5 G/DL (6.4-8.2); TRIGLYCERIDES 162 MG/DL (20-135); eGFR 25 ML/MIN
[2021-12-26 04:01] LABS: POTASSIUM 6.2 MMOL/L (3.5-5.1); TOTAL CARBON DIOXIDE 12.4 MMOL/L (24-32)
[2021-12-26 04:02] LABS: CALCIUM 5.7 MG/DL (8.5-10.1)
[2021-12-26 04:03] LABS: PHOSPHORUS 9.1 MG/DL (2.3-4.5)
[2021-12-26 04:15] LABS: ALANINE AMINOTRANSFERASE 4025 U/L (12-78); ASPARTATE AMINO TRANSFERASE 2631 U/L (10-37)
[2021-12-26] MEDS: sodium bicarbonate (8.4%) inj. 150 MEQ in dextrose 5%-water 1,000 ML IV SCH (04:57)
[2021-12-26] MEDS ORDERED: methylPREDNISolone sod succ/PF 40mg inj. IV SCH (08:00)
[2021-12-26] MEDS ORDERED: pantoprazole 40MG/NS 100ML BAG 100 ML IV SCH (08:00)
[2021-12-26] MEDS ORDERED: epiNEPHrine 0.1mg/ml 10ml syringe ONE (08:00)
[2021-12-26] MEDS ORDERED: etomidate 2mg/ml inj. ONE (08:00)
[2021-12-26] MEDS ORDERED: atropine 0.1mg/ml 10ml syringe ONE (08:00)
[2021-12-26] MEDS ORDERED: rocuronium 10mg/ml inj IV ONE (08:00)
--- NOTE | 2021-12-26 08:22 | NUR ---
Comfort Care I confer with POA and daughters who wants comfort care. I confer with Cm Mendez DNP who is physically with Dr. AGUILAR traveling and giving orders. I receive comfort orders. Family is bedside. Drips are stopped. RT is communicated with (Livan and Fritz) that we will compassionately extubate after a dose of MS.
[2021-12-26] MEDS ORDERED: LORazepam 2 mg/ml vial IV PRN (08:25)
[2021-12-26] MEDS ORDERED: morphine 4 MG/ML inj SYRINge IV PRN (08:25)
[2021-12-26] MEDS ORDERED: phenylephrine inj 50 MG in normal saline 250ml IV soln 245 ML IV SCH (10:01)
--- NOTE | 2021-12-26 10:47 | NUR ---
TOD: 0930 RN witness to cessation of mechanical heartbeat which correlated with tele rhythm. Family is bedside and educated post-augustine options.
[2021-12-26] MEDS ORDERED: DEXTROSE 15 GM of carb/4 tabs (each vial/BOTTLE has 4 tablets) OGT PRN ×2 (14:45)
[2021-12-26] MEDS ORDERED: dextrose ORAL solution 15 GM/59 ML bottle OGT PRN ×2 (15:25)
[2021-12-26] MEDS ORDERED: mineral oil/petrolatum ophthal oint EACHEYE SCH (20:00)
[2021-12-27] MEDS ORDERED: VANCOMYCIN LEVEL IV ONE (03:00)
== END 2021-12-26 13:45 | DRG 871 ==
LOC: ER 15:54 → EDBD 18:12 → UNDOADMIN 18:12 → ED HOLD 18:12 → ORTHO 4S 18:12 → CICU 2S 12-25 09:58
PROVIDERS: ADMIT Internal Medicine; ATTEND Internal Medicine
PROC: 5A09357 Assistance with Respiratory Ventilation, Less than 24 Consecutive Hours, Continuous Positive Airway Pressure (ICD-10-PCS; 2021-12-09)
PROC: XW033H5 Introduction of Tocilizumab into Peripheral Vein, Percutaneous Approach, New Technology Group 5 (ICD-10-PCS; 2021-12-10)
PROC: 5A09357 Assistance with Respiratory Ventilation, Less than 24 Consecutive Hours, Continuous Positive Airway Pressure (ICD-10-PCS; 2021-12-11)
PROC: 5A0935A Assistance with Respiratory Ventilation, Less than 24 Consecutive Hours, High Flow/Velocity Cannula (ICD-10-PCS; 2021-12-11)
PROC: CB121ZZ Planar Nuclear Medicine Imaging of Lungs and Bronchi using Technetium 99m (Tc-99m) (ICD-10-PCS; 2021-12-11)
PROC: 5A09357 Assistance with Respiratory Ventilation, Less than 24 Consecutive Hours, Continuous Positive Airway Pressure (ICD-10-PCS; 2021-12-12)
PROC: 5A0935A Assistance with Respiratory Ventilation, Less than 24 Consecutive Hours, High Flow/Velocity Cannula (ICD-10-PCS; 2021-12-12)
PROC: 5A09357 Assistance with Respiratory Ventilation, Less than 24 Consecutive Hours, Continuous Positive Airway Pressure (ICD-10-PCS; 2021-12-13)
PROC: 5A0935A Assistance with Respiratory Ventilation, Less than 24 Consecutive Hours, High Flow/Velocity Cannula (ICD-10-PCS; 2021-12-13)
PROC: 5A09357 Assistance with Respiratory Ventilation, Less than 24 Consecutive Hours, Continuous Positive Airway Pressure (ICD-10-PCS; 2021-12-14)
PROC: 5A0935A Assistance with Respiratory Ventilation, Less than 24 Consecutive Hours, High Flow/Velocity Cannula (ICD-10-PCS; 2021-12-14)
PROC: 5A09357 Assistance with Respiratory Ventilation, Less than 24 Consecutive Hours, Continuous Positive Airway Pressure (ICD-10-PCS; 2021-12-15)
PROC: 5A0935A Assistance with Respiratory Ventilation, Less than 24 Consecutive Hours, High Flow/Velocity Cannula (ICD-10-PCS; 2021-12-15)
PROC: 5A09357 Assistance with Respiratory Ventilation, Less than 24 Consecutive Hours, Continuous Positive Airway Pressure (ICD-10-PCS; 2021-12-16)
PROC: 5A0935A Assistance with Respiratory Ventilation, Less than 24 Consecutive Hours, High Flow/Velocity Cannula (ICD-10-PCS; 2021-12-16)
PROC: B32T1ZZ Computerized Tomography (CT Scan) of Left Pulmonary Artery using Low Osmolar Contrast (ICD-10-PCS; 2021-12-16)
PROC: B3201ZZ Computerized Tomography (CT Scan) of Thoracic Aorta using Low Osmolar Contrast (ICD-10-PCS; 2021-12-16)
PROC: B32S1ZZ Computerized Tomography (CT Scan) of Right Pulmonary Artery using Low Osmolar Contrast (ICD-10-PCS; 2021-12-16)
PROC: 5A09357 Assistance with Respiratory Ventilation, Less than 24 Consecutive Hours, Continuous Positive Airway Pressure (ICD-10-PCS; 2021-12-17)
PROC: 5A0935A Assistance with Respiratory Ventilation, Less than 24 Consecutive Hours, High Flow/Velocity Cannula (ICD-10-PCS; 2021-12-17)
PROC: 5A09357 Assistance with Respiratory Ventilation, Less than 24 Consecutive Hours, Continuous Positive Airway Pressure (ICD-10-PCS; 2021-12-18)
PROC: 5A0935A Assistance with Respiratory Ventilation, Less than 24 Consecutive Hours, High Flow/Velocity Cannula (ICD-10-PCS; 2021-12-18)
PROC: 5A09357 Assistance with Respiratory Ventilation, Less than 24 Consecutive Hours, Continuous Positive Airway Pressure (ICD-10-PCS; 2021-12-19)
PROC: 5A0935A Assistance with Respiratory Ventilation, Less than 24 Consecutive Hours, High Flow/Velocity Cannula (ICD-10-PCS; 2021-12-19)
PROC: 5A09357 Assistance with Respiratory Ventilation, Less than 24 Consecutive Hours, Continuous Positive Airway Pressure (ICD-10-PCS; 2021-12-20)
PROC: 5A0935A Assistance with Respiratory Ventilation, Less than 24 Consecutive Hours, High Flow/Velocity Cannula (ICD-10-PCS; 2021-12-20)
PROC: 5A09357 Assistance with Respiratory Ventilation, Less than 24 Consecutive Hours, Continuous Positive Airway Pressure (ICD-10-PCS; 2021-12-21)
PROC: 5A0945A Assistance with Respiratory Ventilation, 24-96 Consecutive Hours, High Flow/Velocity Cannula (ICD-10-PCS; 2021-12-21)
PROC: 5A09457 Assistance with Respiratory Ventilation, 24-96 Consecutive Hours, Continuous Positive Airway Pressure (ICD-10-PCS; 2021-12-23)
PROC: 5A0935A Assistance with Respiratory Ventilation, Less than 24 Consecutive Hours, High Flow/Velocity Cannula (ICD-10-PCS; 2021-12-24)
PROC: 5A1935Z Respiratory Ventilation, Less than 24 Consecutive Hours (ICD-10-PCS; principal; 2021-12-25)
PROC: 0BH17EZ Insertion of Endotracheal Airway into Trachea, Via Natural or Artificial Opening (ICD-10-PCS; 2021-12-25)
PROC: 5A0935A Assistance with Respiratory Ventilation, Less than 24 Consecutive Hours, High Flow/Velocity Cannula (ICD-10-PCS; 2021-12-25)
PROC: 02HV33Z Insertion of Infusion Device into Superior Vena Cava, Percutaneous Approach (ICD-10-PCS; 2021-12-25)
PROC: B548ZZA Ultrasonography of Superior Vena Cava, Guidance (ICD-10-PCS; 2021-12-25)
PROC: 04HY32Z Insertion of Monitoring Device into Lower Artery, Percutaneous Approach (ICD-10-PCS; 2021-12-26)
PROC: 4A133B1 Monitoring of Arterial Pressure, Peripheral, Percutaneous Approach (ICD-10-PCS; 2021-12-26)
PROC: 4A133J1 Monitoring of Arterial Pulse, Peripheral, Percutaneous Approach (ICD-10-PCS; 2021-12-26)
DX: A41.9 Sepsis, unspecified organism (principal); K72.00 Acute and subacute hepatic failure without coma; J80 Acute respiratory distress syndrome; G93.41 Metabolic encephalopathy; J12.82 Pneumonia due to coronavirus disease 2019; R65.21 Severe sepsis with septic shock; U07.1 COVID-19; N17.9 Acute kidney failure, unspecified; E87.4 Mixed disorder of acid-base balance; I24.8 Other forms of acute ischemic heart disease; J93.83 Other pneumothorax; R74.01 Elevation of levels of liver transaminase levels; I82.463 Acute embolism and thrombosis of calf muscular vein, bilateral; R34 Anuria and oliguria; E78.00 Pure hypercholesterolemia, unspecified; E78.5 Hyperlipidemia, unspecified; E87.5 Hyperkalemia; I10 Essential (primary) hypertension; I48.91 Unspecified atrial fibrillation; K59.00 Constipation, unspecified; R04.0 Epistaxis; Z88.8 Allergy status to other drugs, medicaments and biological substances; Z79.899 Other long term (current) drug therapy; R40.2420 Glasgow coma scale score 9-12, unspecified time
CPT/HCPCS: 36415; 36600; 71045; 71275; 78580; 78582; 80053; 80069; 80202; 81001; 82803; 82948; 83036; 83605; 83735; 83880; 84100; 84134; 84145; 84478; 84484; 85007; 85018; 85025; 85379; 85384; 85610; 85730; 86140; 87040; 87070; 87077; 87081; 87186; 87635; 93005; 93306; 93970; 94002; 94003; 94640; 94660; 94760; 94799; 96361; 96365; 96372; 96375; 97110; 97530; 99291; A7015; A9540; G0378; J0171; J0461; J0610; J0692; J0696; J1100; J1160; J1450; J1644; J1650; J1815; J1956; J2060; J2270; J2370; J2704; J2920; J2930; J3010; J3262; J3370; J3490; J7030; J7040; J7050; J7060; J7070; Q9967